=== PATIENT | female | born 1970 | race Caucasian/White ===

== ENCOUNTER → 2019-12-04 09:54 | Outpatient (BNVA) | payer OTHER, SELFPAY | PROVIDERS: Visit Provider Surgery | DX: Z76.89 Persons encountering health services in other specified circumstances (principal) ==

== ENCOUNTER → 2020-01-06 08:43 | Outpatient (BNVA) | payer OTHER, SELFPAY | PROVIDERS: PCP Internal Medicine; Visit Provider Surgery | DX: Z01.818 Encounter for other preprocedural examination (principal); E66.9 Obesity, unspecified; Z68.37 Body mass index [BMI] 37.0-37.9, adult; Z90.49 Acquired absence of other specified parts of digestive tract; Z88.0 Allergy status to penicillin; Z79.899 Other long term (current) drug therapy | CPT/HCPCS: 99212 ==

== ENCOUNTER 2020-07-21 | Outpatient (REF) | payer OTHER, SELFPAY ==
[2020-07-22 12:24] LABS: Glucose Urine UA NEG (NEG); Leukocyte Esterase Urine 1+ (NEG); Nitrite Urine NEG (NEG); PH 5.5 (5.0-8.0); Specific Gravity - Urine 1.025 (1.005-1.025); UACC Culture Trigger YES; Urine Blood NEG (NEG); Urine Ketones NEG (NEG); Urine Protein NEG (NEG-TRACE)
[2020-07-22 12:26] LABS: Appearance Urine HAZY; Color Urine YELLOW
[2020-07-22 12:37] LABS: Bacteria Urine 4+ /LPF; RBC Urine 0 /HPF (0); Squamous Epithelial Cell Urine 3+ /LPF
== END 2020-07-21 00:01 | disposition home or self-care (01) ==
LOC: HO.LNP
PROVIDERS: Visit Provider Nurse Practitioner Family
DX: R10.9 Unspecified abdominal pain (principal)
CPT/HCPCS: 81001; 81003; 87086; 87088; 87186

== ENCOUNTER → 2021-01-13 11:30 | Outpatient (BNVA) | payer OTHER, SELFPAY | PROVIDERS: PCP Internal Medicine; Referring Provider Internal Medicine; Visit Provider Physician Assistant Surgical ==

== ENCOUNTER → 2021-02-22 08:14 | Outpatient (BNVA) | payer OTHER, SELFPAY | PROVIDERS: PCP Internal Medicine; Visit Provider Surgery ==

== ENCOUNTER 2021-03-07 09:07 | Outpatient (REF) | payer OTHER, SELFPAY ==
--- NOTE | ~2021-03-07 | XR_ITS ---
EXAMINATION: XR CHEST CLINICAL INFORMATION: Obesity COMPARISON: None TECHNIQUE: 2 views of the chest were obtained. FINDINGS: No significant abnormality is noted involving the heart, lungs, mediastinum, bony thorax or soft tissues. XR/XR chest 2V IMPRESSION: Unremarkable examination.
[2021-03-07 09:37] LABS: MANUAL DIFF FLAG NO
--- NOTE | 2021-03-07 09:45 | ECG_ITS ---
Test Reason : OBESITY Blood Pressure : / mmHG Vent. Rate : 078 BPM Atrial Rate : 078 BPM P-R Int : 176 ms QRS Dur : 074 ms QT Int : 384 ms P-R-T Axes : 053 020 -03 degrees QTc Int : 437 ms Normal sinus rhythm Nonspecific T wave abnormality Abnormal ECG When compared with ECG of 17-NOV-2019 12:29, No significant change was found Referred By: Jaguar Ochoa Electronically Signed By:ROSHNI BARRIGA MD
[2021-03-07 10:03] LABS: Basophils Percent Auto 0.5 % (0-2); Eosinophils Absolute Auto 0.2 X10*3/uL (0.0-0.4); Eosinophils Percent Auto 2.2 % (0-4); Hematocrit 45.2 % (37.0-47.0); Hemoglobin 14.4 g/dl (12.0-16.0); Imm Gran Abs Auto 0.06 X10*3/uL (0.00-0.03); Imm Gran Pct Auto 0.8 % (0.0-0.4); Lymphocytes Absolute Auto 3.3 X10*3/uL (1.2-4.9); Lymphocytes Percent Auto 41.2 % (20-40); Mean Corpuscular HGB Conc 31.9 g/dl (31.0-35.0); Mean Corpuscular Hemoglobin 28.5 pg (27.0-33.0); Mean Corpuscular Volume 89.5 fL (80.0-98.0); Mean Platelet Volume 9.5 fL (9.4-12.3); Monocytes Absolute Auto 0.5 X10*3/uL (0.1-1.2); Monocytes Percent Auto 6.9 % (2-11); Neutrophils Absolute Auto 3.8 x10*3/uL (2.0-8.3); Neutrophils Percent Auto 48.4 % (45-73); Platelet Count 334 X10*3/uL (160-400); Red Blood Count 5.05 X10*6/uL (4.20-5.50); Red Cell Distribution Width 13.6 % (11.0-16.0); White Blood Count 7.9 X10*3/uL (4.8-10.8)
[2021-03-07 10:38] LABS: Estimated Average Glucose 111 mg/dL; Hemoglobin A1c % 5.5 %
[2021-03-07 10:42] LABS: Alanine Aminotransferase 19 U/L (0-31); Albumin Level 4.2 g/dL (3.5-5.0); Alkaline Phosphatase 80 U/L (39-117); Anion Gap 11 (12-20); Aspartate Amino Transferase 16 U/L (5-31); Bilirubin Total 0.4 mg/dL (0.0-1.0); Blood Urea Nitrogen 13 mg/dL (9-16); C Reactive Protein 0.46 mg/dL (< or = 0.50); Calcium 9.7 mg/dL (8.4-10.2); Carbon Dioxide 29 mmol/L (22-29); Chloride 110 mmol/L (96-108); Cholesterol 205 mg/dL; Estimated Glomerular Filt Rate > 60; Glucose Random 104 mg/dL (60-115); HDL Cholesterol 52 mg/dL; Iron 111 mcg/dL (30-160); LDL Cholesterol Calculated 135 mg/dl; Percent Iron Saturation 28 % (15-50); Potassium 4.8 mmol/L (3.3-5.1); Sodium 145 mmol/L (135-145); Total Iron Binding Capacity 392 mcg/dL (228-428); Total Protein 7.3 g/dL (6.5-8.0); Triglycerides 93 mg/dL; Unsaturated Iron Binding 281 ug/dL
[2021-03-07 11:04] LABS: Folate 11.4 ng/mL (> or = 4.0); Vitamin B12 325 pg/mL (200-900)
[2021-03-07 11:06] LABS: Ferritin 26 ng/mL (10-250); Insulin 18 uU/mL (2-29); TSH reflex Free T4 2.96 uIU/mL (0.32-4.0); Vitamin D 25-OH Total 17.3 ng/mL (>30)
[2021-03-08 11:53] LABS: H Pylori Breath Test Negative (Negative)
[2021-03-08 12:01] LABS: Calcium (PTHI) 9.7 mg/dL (8.6-10.2); PTHI 51 pg/mL (14-64)
[2021-03-10 06:27] LABS: Zinc 60 mcg/dL (60-130)
[2021-03-12 09:16] LABS: Vitamin B1 11 nmol/L (8-30)
[2021-03-12 23:36] LABS: Vitamin A 53 mcg/dL (38-98)
== END 2021-03-07 09:08 | disposition home or self-care (01) ==
LOC: HO.LAB 09:07
PROVIDERS: PCP Internal Medicine; Visit Provider Surgery
DX: E66.9 Obesity, unspecified (principal); Z68.39 Body mass index [BMI] 39.0-39.9, adult
CPT/HCPCS: 36415; 71046; 80053; 80061; 82306; 82607; 82728; 82746; 83013; 83036; 83525; 83540; 83970; 84425; 84443; 84590; 84630; 85025; 86140; 93005; 99211

== ENCOUNTER → 2021-03-25 08:01 | Outpatient (BNVA) | payer OTHER, SELFPAY | PROVIDERS: PCP Internal Medicine; Visit Provider Surgery ==

== ENCOUNTER → 2021-04-07 08:07 | Outpatient (REF) | payer OTHER, SELFPAY ==
--- NOTE | 2021-04-07 08:12 | CA_ITS ---
Acquisition Time: 2021-04-07 08:15:32 Total Exercise Time: 00:06:00 Test Indications: Abnormal ECG Medications: IRON NAPROXEN CYCLOBENZAPRINE Protocol: OLIVIA Max HR: 162 BPM 94% of Pred: 172 BPM Max BP: 158/078 mmHG Max Work Load: 7.0 METS Exercise stress test with exercise 6 min of Olivia protocol, without anginal symptoms, without arrythmia, with normotensive response to exercise, without EKG changes that meet criteria for ischemia however with nonspecific ST/ T wave abnormalities noted in recovery. Test reviewed with Dr Rainey. Message sent to Dr Bolanos with report and recommendation for stress echocardiogram for futher evaluation. Referred By: Jaguar Ochoa Overread By: IVONNE MCCOLLUM
== END ==
LOC: HO.CARD 08:07
PROVIDERS: PCP Internal Medicine; Visit Provider Surgery
DX: R94.31 Abnormal electrocardiogram [ECG] [EKG] (principal)
CPT/HCPCS: 93017

== ENCOUNTER → 2021-04-08 08:13 | Outpatient (BNVA) | payer OTHER, SELFPAY | PROVIDERS: PCP Internal Medicine; Visit Provider Dietitian, Registered | DX: E66.9 Obesity, unspecified (principal); Z71.3 Dietary counseling and surveillance | CPT/HCPCS: 97802 ==

== ENCOUNTER → 2021-04-18 08:15 | Outpatient (BNVA) | payer OTHER, SELFPAY | PROVIDERS: PCP Internal Medicine; Referring Provider Surgery; Visit Provider Dietitian, Registered | DX: E66.9 Obesity, unspecified (principal) | CPT/HCPCS: 97803 ==

== ENCOUNTER 2021-04-20 08:11 | Outpatient (REF) | payer OTHER, SELFPAY ==
--- NOTE | ~2021-04-20 | US_ITS ---
EXAMINATION: US COMPLETE ABDOMEN WITH LIVER ELASTOGRAPHY CLINICAL INFORMATION: Obesity. COMPARISON: None. TECHNIQUE: Real-time imaging of the abdominal viscera. Noninvasive ultrasound liver fibrosis assessment is performed using Iraj ElastPQ point quantification shear wave elastography (2D-SWE) with a C5-2 MHz transducer. Multiple elastography samples are obtained. FINDINGS: PANCREAS: Normal. The visualized pancreatic head and body are normal in appearance. The remainder of the pancreas is obscured from visualization by the overlying bowel gas. ABDOMINAL AORTA: The proximal, middle, and distal aortic segments are normal in caliber. INFERIOR VENA CAVA: Visualized portions are normal. LIVER: The liver demonstrates normal size, contour and echogenicity. There are multiple anechoic cysts with the largest cyst measuring 1.2 x 1.2 x 0.8 cm in the right hepatic lobe. There is an isoechoic mass with ill-defined margins measuring 4.0 x 3.6 x 4.6 cm with peripheral vascularity. It is not well visualized on the CT abdomen exam of 11/17/2019. Question atypical hemangioma, focal fatty deposition or adenoma. The right lobe measures 14.9 cm in length. The left lobe measures 11.6 cm in length. Portal flow is hepatopedal. Shear wave liver elastography median stiffness is 1.37 m/s (reference: normal median stiffness is 1.3 m/s or less). IQR/median stiffness to assess sampling precision is 0.11 (reference: good quality data set is IQR/median stiffness of 0.15 or less). GALLBLADDER: Normal. The gallbladder is physiologically distended without evidence of stones, sludge, polyps, wall thickening or pericholecystic fluid. COMMON BILE DUCT: Normal in caliber measuring 0.5 cm in diameter. RIGHT KIDNEY: Normal. No hydronephrosis. No renal calculi or focal parenchymal lesions. The kidney measures 10.8 cm in maximum dimension. LEFT KIDNEY: Normal. No hydronephrosis. No renal calculi or focal parenchymal lesions. The kidney measures 10.2 cm in maximum dimension. SPLEEN: Normal. The spleen measures 9.4 cm in maximum dimension. FREE FLUID: None. US/US abdomen comp w elastography IMPRESSION: 1. Hepatic steatosis with several liver cysts. These were seen on previous CT abdomen exam. There is an ill-defined isoechoic mass in segment 4A. Question hemangioma, adenoma or focal fatty liver deposition. Consider repeat CT of the liver with and without contrast. Rest of the abdominal ultrasound is unremarkable. 2. Liver elastography: Median liver stiffness 1.37 cm suggestive of CACLD (ruled out). REFERENCE: Society of Radiologists in Ultrasound Liver Stiffness Thresholds (2020): LIVER STIFFNESS THRESHOLDS: *Liver Stiffness equal or less than 1.3 m/s: High probability of being normal. *Liver Stiffness less than 1.7 m/s: In the absence of other known clinical signs, rules out compensated advanced chronic liver disease. *Liver Stiffness 1.7-2.1 m/s: Suggestive of compensated advanced chronic liver disease but need further test for confirmation. *Liver Stiffness over 2.1 m/s: Rules in compensated advanced chronic liver disease. *Liver Stiffness over 2.4 m/s: Suggestive of clinically significant portal hypertension. QUALITY OF DATA SET: *IQR/Median value equal or less than 0.15 implies a quality data set. *IQR/Median value over 0.15 implies a poor quality data set. SIGNIFICANT CHANGE FROM PRIOR EXAM: Significant change if liver stiffness measurement is 10% or greater from prior exam. OTHER CONSIDERATIONS: The stage of liver fibrosis may be overestimated in the setting of acute hepatitis, liver inflammation, elevated liver function tests, hepatic vascular congestion, obstructive cholestasis, non-fasting state, and infiltrative diseases such as amyloidosis and lymphoma. In some patients with NAFLD, the liver stiffness thresholds for compensated advanced chronic liver disease may be lower. In causes other than viral hepatitis and NAFLD, liver stiffness thresholds are not well established.
--- NOTE | ~2021-04-20 | FL_ITS ---
EXAMINATION: XR FLUOROSCOPY UPPER GI WITH AIR CLINICAL INFORMATION: Obesity. COMPARISON: None. TECHNIQUE: Routine upper GI air-contrast study was performed in upright and lying position. FINDINGS: Following oral administration of thick barium and effervescent granules, there is normal propagation of bolus from the oral cavity through the pharynx and esophagus and into the stomach without any evidence of obstruction, narrowing or stricture On placing patient supine and prone lying, there is a small hiatal hernia noted. No reflux seen. The course, caliber and peristalsis of the stomach and the duodenum are normal. The mucosal pattern of the stomach and the duodenum is normal. There is evidence of previous cholecystectomy. FLUOROSCOPY TIME: 1.5 minutes DOSE AREA PRODUCT: 29.136 Gy-m2 (microgray-meter squared) FL/FL upper GI w air IMPRESSION: Small hiatal hernia. No gastroesophageal reflux. The rest of the upper GI exam is unremarkable.
== END 2021-04-20 08:12 | disposition home or self-care (01) ==
LOC: HO.US 08:11
PROVIDERS: PCP Internal Medicine; Visit Provider Surgery
DX: E66.9 Obesity, unspecified (principal); Z68.39 Body mass index [BMI] 39.0-39.9, adult
CPT/HCPCS: 74246; 76705; 76981

== ENCOUNTER → 2021-04-22 08:43 | Outpatient (BNVA) | payer OTHER, SELFPAY | PROVIDERS: PCP Internal Medicine; Visit Provider Surgery ==

== ENCOUNTER → 2021-04-27 10:59 | Outpatient (REF) | payer OTHER, SELFPAY ==
--- NOTE | 2021-04-27 11:06 | CA_ITS ---
Acquisition Time: 2021-04-27 11:09:51 Total Exercise Time: 00:06:41 Test Indications: ABN EKG, ABN ETT Medications: SEE CHART Protocol: OLIVIA Max HR: 164 BPM 95% of Pred: 172 BPM Max BP: 158/088 mmHG Max Work Load: 8.1 METS Exercise stress test with exercise 6 min 41 sec of Olivia protocol, without anginal symptoms, without arrythmia, with normotensive response to exercise, with baseline EKG showing T wave inversion leads III, aVF, V3, without EKG changes meeting criteria for ischemia at peak, with same T wave inversions seen throughout test and including mild T wave inversion V4-V6 in recovery. Echo images obtained by tech at rest and immediately post peak exercise. Definity contast used. Test reviewed with Dr Rainey Referred By: Jaguar Ochoa Overread By: IVONNE MCCOLLUM
== END ==
LOC: HO.CARD 10:59
PROVIDERS: PCP Internal Medicine; Visit Provider Surgery
DX: R94.39 Abnormal result of other cardiovascular function study (principal)
CPT/HCPCS: 93350; Q9957

== ENCOUNTER 2021-05-23 16:11 | Emergency (ER) | payer OTHER, SELFPAY ==
--- NOTE | 2021-05-23 | ECG_ITS ---
Test Reason : CHEST PAIN Blood Pressure : / mmHG Vent. Rate : 078 BPM Atrial Rate : 078 BPM P-R Int : 174 ms QRS Dur : 076 ms QT Int : 392 ms P-R-T Axes : 050 023 019 degrees QTc Int : 446 ms Normal sinus rhythm Nonspecific T wave abnormality Abnormal ECG When compared with ECG of 07-MAR-2021 09:48, No significant change was found Referred By: Generic ED Physician Electronically Signed By:Oswaldo Argueta
--- NOTE | ~2021-05-23 | XR_ITS ---
EXAMINATION: XR CHEST CLINICAL INFORMATION: Chest pain COMPARISON: None TECHNIQUE: Frontal view of the chest was obtained. FINDINGS: No significant abnormality is noted involving the heart, lungs, mediastinum, bony thorax or soft tissues. XR/XR chest 1V IMPRESSION: Unremarkable chest examination.
[2021-05-23 18:34] VITALS: BP 122/78; PULSE 73; RESP 16; TEMP 36.8; O2SAT 99; BMI 34.4
[2021-05-23 21:22] LABS: MANUAL DIFF FLAG NO
[2021-05-23 21:42] LABS: Anion Gap 15 (12-20); Basophils Percent Auto 0.2 % (0-2); Blood Urea Nitrogen 14 mg/dL (9-16); Calcium 9.5 mg/dL (8.4-10.2); Carbon Dioxide 25 mmol/L (22-29); Chloride 106 mmol/L (96-108); Creatinine Clr Calc Pharmacy 87.8; Eosinophils Absolute Auto 0.2 X10*3/uL (0.0-0.4); Eosinophils Percent Auto 2.4 % (0-4); Estimated Glomerular Filt Rate > 60; Glucose Random 94 mg/dL (60-115); Hemoglobin 14.2 g/dl (12.0-16.0); Imm Gran Abs Auto 0.05 X10*3/uL (0.00-0.03); Imm Gran Pct Auto 0.6 % (0.0-0.4); Lymphocytes Absolute Auto 3.9 X10*3/uL (1.2-4.9); Lymphocytes Percent Auto 43.2 % (20-40); Mean Corpuscular HGB Conc 32.3 g/dl (31.0-35.0); Mean Corpuscular Hemoglobin 28.8 pg (27.0-33.0); Mean Corpuscular Volume 89.2 fL (80.0-98.0); Mean Platelet Volume 9.7 fL (9.4-12.3); Monocytes Absolute Auto 0.6 X10*3/uL (0.1-1.2); Monocytes Percent Auto 6.2 % (2-11); Neutrophils Absolute Auto 4.2 x10*3/uL (2.0-8.3); Neutrophils Percent Auto 47.4 % (45-73); Platelet Count 362 X10*3/uL (160-400); Potassium 4.5 mmol/L (3.3-5.1); Red Blood Count 4.93 X10*6/uL (4.20-5.50); Red Cell Distribution Width 13.8 % (11.0-16.0); Sodium 141 mmol/L (135-145); White Blood Count 8.9 X10*3/uL (4.8-10.8)
[2021-05-23 21:47] LABS: Troponin-I High Sensitivity 5.6 ng/L (<3.5-17.0)
== END 2021-05-23 23:26 | disposition left against medical advice (07) ==
PROVIDERS: Emergency Provider Emergency Medicine; PCP Internal Medicine
DX: R07.9 Chest pain, unspecified (principal); R20.0 Anesthesia of skin
CPT/HCPCS: 36415; 71045; 80048; 84484; 85025; 93005; 99283

== ENCOUNTER → 2021-05-27 11:06 | Outpatient (BNVA) | payer OTHER, SELFPAY | PROVIDERS: PCP Internal Medicine; Visit Provider Surgery | DX: Z13.89 Encounter for screening for other disorder (principal) ==

== ENCOUNTER → 2021-06-01 09:11 | Outpatient (BNVA) | payer OTHER, SELFPAY | PROVIDERS: PCP Internal Medicine; Visit Provider Physician Assistant | DX: Z13.89 Encounter for screening for other disorder (principal) ==

== ENCOUNTER → 2021-06-08 08:42 | Outpatient (BNVA) | payer OTHER, SELFPAY | PROVIDERS: PCP Internal Medicine; Referring Provider Internal Medicine; Visit Provider Physician Assistant | DX: Z13.89 Encounter for screening for other disorder (principal) ==

== ENCOUNTER → 2021-06-15 08:58 | Outpatient (BNVA) | payer OTHER, SELFPAY | PROVIDERS: PCP Internal Medicine; Referring Provider Internal Medicine; Visit Provider Physician Assistant Surgical | DX: Z13.89 Encounter for screening for other disorder (principal) ==

== ENCOUNTER → 2021-06-22 09:08 | Outpatient (BNVA) | payer OTHER, SELFPAY | PROVIDERS: PCP Internal Medicine; Visit Provider Physician Assistant | DX: Z13.89 Encounter for screening for other disorder (principal) ==

== ENCOUNTER → 2021-06-27 08:15 | Outpatient (BNVA) | payer OTHER, SELFPAY | PROVIDERS: PCP Internal Medicine; Visit Provider Surgery | DX: Z13.89 Encounter for screening for other disorder (principal) ==

== ENCOUNTER → 2021-07-08 09:01 | Outpatient (BNVA) | payer OTHER, SELFPAY | PROVIDERS: PCP Internal Medicine; Referring Provider Internal Medicine; Visit Provider Surgery | DX: Z13.89 Encounter for screening for other disorder (principal) ==

== ENCOUNTER → 2021-07-11 08:10 | Outpatient (BNVA) | payer OTHER, SELFPAY | PROVIDERS: PCP Internal Medicine; Visit Provider Surgery | DX: E66.9 Obesity, unspecified (principal); Z68.36 Body mass index [BMI] 36.0-36.9, adult; K21.9 Gastro-esophageal reflux disease without esophagitis; R11.0 Nausea; Z01.818 Encounter for other preprocedural examination ==

== ENCOUNTER 2021-08-30 08:46 | Outpatient (REF) | payer OTHER, SELFPAY ==
[2021-08-30 09:26] LABS: MANUAL DIFF FLAG NO
[2021-08-30 10:02] LABS: Basophils Percent Auto 0.3 % (0-2); Eosinophils Absolute Auto 0.1 X10*3/uL (0.0-0.4); Eosinophils Percent Auto 1.6 % (0-4); Hematocrit 43.4 % (37.0-47.0); Hemoglobin 14.3 g/dl (12.0-16.0); Imm Gran Abs Auto 0.02 X10*3/uL (0.00-0.03); Imm Gran Pct Auto 0.3 % (0.0-0.4); Lymphocytes Absolute Auto 3.1 X10*3/uL (1.2-4.9); Mean Corpuscular HGB Conc 32.9 g/dl (31.0-35.0); Mean Corpuscular Hemoglobin 28.5 pg (27.0-33.0); Mean Corpuscular Volume 86.5 fL (80.0-98.0); Mean Platelet Volume 9.3 fL (9.4-12.3); Monocytes Absolute Auto 0.5 X10*3/uL (0.1-1.2); Monocytes Percent Auto 7.8 % (2-11); Neutrophils Absolute Auto 3.1 x10*3/uL (2.0-8.3); Platelet Count 319 X10*3/uL (160-400); Red Blood Count 5.02 X10*6/uL (4.20-5.50); Red Cell Distribution Width 13.2 % (11.0-16.0); White Blood Count 6.8 X10*3/uL (4.8-10.8)
[2021-08-30 10:25] LABS: Estimated Average Glucose 105 mg/dL; Hemoglobin A1c % 5.3 %
[2021-08-30 10:35] LABS: Alanine Aminotransferase 19 U/L (0-31); Albumin Level 4.1 g/dL (3.5-5.0); Alkaline Phosphatase 77 U/L (39-117); Anion Gap 14 (12-20); Aspartate Amino Transferase 24 U/L (5-31); Bilirubin Total 0.6 mg/dL (0.0-1.0); Blood Urea Nitrogen 12 mg/dL (9-16); C Reactive Protein 0.54 mg/dL (< or = 0.50); Calcium 9.3 mg/dL (8.4-10.2); Carbon Dioxide 26 mmol/L (22-29); Chloride 108 mmol/L (96-108); Cholesterol 174 mg/dL; Estimated Glomerular Filt Rate > 60; Glucose Random 105 mg/dL (60-115); HDL Cholesterol 41 mg/dL; LDL Cholesterol Calculated 116 mg/dl; Potassium 4.4 mmol/L (3.3-5.1); Sodium 144 mmol/L (135-145); Total Protein 6.9 g/dL (6.5-8.0); Triglycerides 87 mg/dL
[2021-08-30 10:54] LABS: Prothrombin Time 11.2 SEC (9.9-13.0)
[2021-08-30 10:55] LABS: Partial Thromboplastin Time 35.9 SEC (24.1-38.0)
[2021-08-30 11:04] LABS: Insulin 10 uU/mL (2-29); TSH reflex Free T4 2.01 uIU/mL (0.32-4.0)
== END 2021-08-30 08:47 | disposition home or self-care (01) ==
LOC: HO.LAB 08:46
PROVIDERS: PCP Internal Medicine; Visit Provider Surgery
DX: E66.9 Obesity, unspecified (principal); Z68.36 Body mass index [BMI] 36.0-36.9, adult
CPT/HCPCS: 36415; 80053; 80061; 83036; 83525; 84443; 85025; 85610; 85730; 86140

== ENCOUNTER 2021-09-06 11:01 | Inpatient (IN) | payer OTHER, SELFPAY ==
[2021-08-31 10:23] VITALS: BMI 37.8
--- NOTE | 2021-09-02 08:35 | P.CONAN_ITS ---
Documented by User: Sherley Reis NP 09/02/21 08:39 HPI - Anesthesia Eval Consult details Narrative: 51yo F for Gastrectomy Sleeve,EGD,Possible diaphragmatic hernia,Possible ventral hernia,Possible open PMFSH Active Problems Active Problems: All Active Problems (Updated 08/19/21 @ 11:54 by Jonathon Yao MD) Grieving (Acute) Encounter for routine gynecological examination (Acute) Status post laparoscopic cholecystectomy (Acute) Anemia (Acute) Preoperative examination (Acute) BMI 37.0-37.9, adult (Acute) Daytime somnolence (Acute) Physical exam, annual (Acute) Encounter for general adult medical examination with abnormal findings (Acute) Abnormal CBC (Acute) Breast screening (Acute) Screening-pulmonary TB (Acute) Flank pain (Acute) Foul smelling urine (Acute) BMI 39.0-39.9,adult (Acute) Abnormal EKG (Acute) Vitamin D deficiency (Acute) Vitamin B12 deficiency (Acute) BMI 38.0-38.9,adult (Acute) Abnormal stress test (Acute) Chest pain (Acute) Back pain (Acute) Obesity (Acute) Past Medical History Medical History Anemia Back pain Chronic constipation Eczema History of COVID-19 Obesity Family History Family History Father Heart disease Mother No problems noted. Brother DM (diabetes mellitus) Brother No problems noted. Brother No problems noted. Sister No problems noted. Sister No problems noted. Sister No problems noted. Son No problems noted. Son No problems noted. Daughter No problems noted. Daughter No problems noted. Surgical History Surgical History (Updated 09/06/21 @ 11:32 by Katie Gagnon RN) Hx of abdominoplasty Hx of bilateral breast reduction surgery Status post cholecystectomy Tubal ligation status Social History Social History Housing: House Are you a primary youth care professional to a significant other at home: No Do you presently have visiting nurse or other home services: No Alcohol intake: current Alcohol intake frequency: does not drink Patient Tobacco Use Status: Never used Tobacco e-Cigarette/Vaping Use: Never Used Second Hand Smoke Exposure: No Use of substances other than those prescribed or required for medical reasons: No Have you been hit, kicked, punched, or otherwise hurt by someone within the past year? 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 [employer] Current occupational exposures/hazards: No Cognitive needs: No Hearing needs: No Vision needs: No Meds Allergies Allergy/AdvReac Type Severity Reaction Status Date / Time penicillin G Allergy Unknown Hives Verified 08/26/21 10:38 Home Medications Medication Instructions Recorded Confirmed Last Taken Type vitamin B complex (B 1 tab PO DAILY 01/06/20 08/31/21 Unknown History Complex-Vitamin B12) hydrocortisone 2.5 % topical cream 1 appl topical QAM PRN Rash 07/14/21 08/31/21 Unknown History hydroquinone 4 % topical cream 1 appl topical DAILY PRN Rash 07/14/21 08/31/21 Unknown History ketoconazole 2 % topical cream 1 appl topical BID PRN Rash 07/14/21 08/31/21 Unknown History Exam Exam Date and Time: September 02, 2021 0835 Height,Weight and Vital Signs: Height 5 ft 6 in Weight 106.141 kg Pertinent Lab Results Pertinent Lab Results: Laboratory Tests 08/30/21 09:20 Blood Type A Positive Antibody Screen NEGATIVE Laboratory Tests 08/30/21 08/30/21 09:24 09:24 WBC 6.8 Hgb 14.3 Hct 43.4 Plt Count 319 Sodium 144 Potassium 4.4 Chloride 108 Carbon Dioxide 26 BUN 12 Creatinine 0.90 Narrative Narrative: EKG 05/2021 Vent. Rate : 078 BPM ? ? Atrial Rate : 078 BPM ?? P-R Int : 174 ms? QRS Dur : 076 ms ? ? QT Int : 392 ms ? ? ? P-R-T Axes : 050 023 019 degrees ?? QTc Int : 446 ms ? Normal sinus rhythm Nonspecific T wave abnormality Abnormal ECG When compared with ECG of 07-MAR-2021 09:48, No significant change was found Stress ECHO 04/2021 Exercise stress echocardiogram was reviewed. At rest, there is normal LVEF and wall motion. With peak exercise, there is? appropriate augmentation of wall thickening and contractility. There is normal decrease in end-systolic volumes. Overall,? normal study.? Assessment and Plan Assessment Anesthesia Assessment: Chart Reviewed Documented by User: Ximena Victoria MD 09/06/21 13:34 [facility] Active Problems Active Problems: All Active Problems (Updated 08/19/21 @ 11:54 by Jonathon Yao MD) Grieving (Acute) Encounter for routine gynecological examination (Acute) Status post laparoscopic cholecystectomy (Acute) Anemia (Acute) Preoperative examination (Acute) BMI 37.0-37.9, adult (Acute) Daytime somnolence (Acute) Physical exam, annual (Acute) Encounter for general adult medical examination with abnormal findings (Acute) Abnormal CBC (Acute) Breast screening (Acute) Screening-pulmonary TB (Acute) Flank pain (Acute) Foul smelling urine (Acute) BMI 39.0-39.9,adult (Acute) Abnormal EKG (Acute) Vitamin D deficiency (Acute) Vitamin B12 deficiency (Acute) BMI 38.0-38.9,adult (Acute) Abnormal stress test (Acute) Chest pain (Acute) Back pain (Acute) Obesity (Acute) Denies RYAN Past Medical History Medical History Anemia Back pain Chronic constipation Eczema History of COVID-19 Obesity Family History Family History Father Heart disease Mother No problems noted. Brother DM (diabetes mellitus) Brother No problems noted. Brother No problems noted. Sister No problems noted. Sister No problems noted. Sister No problems noted. Son No problems noted. Son No problems noted. Daughter No problems noted. Daughter No problems noted. Family history of problems with anesthesia: No Surgical History Surgical History (Updated 09/06/21 @ 11:32 by Katie Gagnon RN) Hx of abdominoplasty Hx of bilateral breast reduction surgery Status post cholecystectomy Tubal ligation status History of Problems with Anesthesia: No Social History Social History Housing: House Are you a primary youth care professional to a significant other at home: No Do you presently have visiting nurse or other home services: No Alcohol intake: current Alcohol intake frequency: does not drink Patient Tobacco Use Status: Never used Tobacco e-Cigarette/Vaping Use: Never Used Second Hand Smoke Exposure: No Use of substances other than those prescribed or required for medical reasons: No Have you been hit, kicked, punched, or otherwise hurt by someone within the past year? 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 [employer] Current occupational exposures/hazards: No Cognitive needs: No Hearing needs: No Vision needs: No Meds Allergies Allergy/AdvReac Type Severity Reaction Status Date / Time penicillin G Allergy Unknown Hives Verified 08/26/21 10:38 Home Medications Medication Instructions Recorded Confirmed Last Taken Type vitamin B complex (B 1 tab PO DAILY 01/06/20 08/31/21 Unknown History Complex-Vitamin B12) hydrocortisone 2.5 % topical cream 1 appl topical QAM PRN Rash 07/14/21 08/31/21 Unknown History hydroquinone 4 % topical cream 1 appl topical DAILY PRN Rash 07/14/21 08/31/21 Unknown History ketoconazole 2 % topical cream 1 appl topical BID PRN Rash 07/14/21 08/31/21 Unknown History Exam Height,Weight and Vital Signs: Height 5 ft 6 in Weight 106.141 kg Vital Signs Temp Pulse Resp BP Pulse Ox O2 Del Method 09/06/21 11:17 98.6 F 71 17 108/70 96 Room Air Pertinent Lab Results Pertinent Lab Results: Laboratory Tests 08/30/21 09:20 Blood Type A Positive Antibody Screen NEGATIVE Laboratory Tests 08/30/21 08/30/21 09:24 09:24 WBC 6.8 Hgb 14.3 Hct 43.4 Plt Count 319 Sodium 144 Potassium 4.4 Chloride 108 Carbon Dioxide 26 BUN 12 Creatinine 0.90 Lab Results 08/30/21 09/06/21 Range/Units 09:20 11:02 COVID-19 (MADY) Negative (Negative) COVID-19 Clin Com See Note Blood Type A Positive Antibody Screen NEGATIVE Airway Mallampati Class: III TM Dist: >3cm Neck ROM: Full Loose/Missing/Broken Teeth: No (Patient denies) Heart: RRR Lungs: CTAB Assessment and Plan Final Anesthetic Review Family History of Problems with Anesthesia: No History of Problems with Anesthesia: No NPO: Yes ASA Class: III Final Preanesthetic Review: No Changes in Pt Med Stat, Meds/Allgs Chart Reviewed, Consent Obtained/Reviewed and Anes Risks/Benef Reviewed Patient Risk: Intermediate Procedure Risk: Intermediate Assessment/Block/Sedation in SS: Assess/Block/Sedation-SS Anesthetic Plan Anesthetic Plan: GA Disposition: Standard PACU and Inp. Admit - Standard Bed
--- NOTE | 2021-09-03 22:59 | MHC.SHP ---
Pre-Procedural Eval Section A Date of Service: 09/03/21 The patient is an INPATIENT: Yes The History & Physical has been completed within 30 days and I have reviewed it.: Yes Section B Chief Complaint: Obesity Relevant Family History (Specify if Yes): No Relevant Social History: None Present Medications: None Medical History: No relevant PMH History of Previous Operations: No relevant previous surgery Allergies: Allergies Allergy/AdvReac Type Severity Reaction Status Date / Time penicillin G Allergy Unknown Hives Verified 08/26/21 10:38 Review of Systems Sugical H&P ROS: Negative: Constitution, Cardiovascular, Respiratory, Neurological, Psychiatric, Hem-Onc, Allergic/Immunologic, Gastrointestinal, Genitourinary, Musculoskeletal, Integumentary, Endocrine and Eyes/Ears/Nose/Throat Exam Surgical H&P Exam: Normal: HEENT, Normal: Heart, Normal: Lungs, Normal: Extremities, Normal: Abdomen, Normal: Skin and Normal: Neurological Plan Diagnosis/Plan: Unchanged I have reviewed the history and physical and performed a pertinent physical examination on my patient. No changes have occurred unless specified.
[2021-09-06] VITALS (14 sets, daily range): BP systolic 108–147; BP diastolic 70–94; PULSE 64–73; RESP 16–22; TEMP 36.4–37; O2SAT 96–100; BMI 35.6
--- NOTE | 2021-09-06 11:15 | PHA.MEDREC ---
Pharmacy Consult ? Medication Reconciliation Pharmacy has reviewed the medication reconciliation completed by nursing.
[2021-09-06 11:47] LABS: COVID-19 Test Negative (Negative)
[2021-09-06] MEDS: Lactated Ringers 1,000 ML 999 ML IV (12:00)
[2021-09-06] MEDS: Lactated Ringers 1,000 ML 100 ML IVCONT ×2 (12:01→19:18)
--- NOTE | 2021-09-06 14:35 | P.BOP_ITS ---
Brief Operative Note Date of Service: 09/06/21 Pre-op diagnosis: Severe obesity with comorbidities (see below) Post-op diagnosis: same Procedure: INITIAL PATIENT BMI ON PRESENTATION AT OUR OFFICE: 39.7 kg/m2 LAST BMI BEFORE SURGERY: 35.6 kg/m2 COMORBIDITIES: back pain ?The patient presented to the Weight Management Program with significant obesity that was negatively impacting the patient's comorbidities as listed above.? The program is a phased program with a special focus on preoperative medical weight management to promote substantial weight loss and prepare the patients for the second phase of the program: bariatric surgery. The patient participated in an intensive weekly lifestyle ?intervention and exercise program during which the patient ?has lost between the initial office visit and the last preoperative visit 19.2 lbs, or 7.81% of initial actual body weight. It was deemed appropriate for the patient to now have bariatric surgery. In light of the current Covid-19 pandemic and the well documented strong association of obesity and increased risk of worse outcomes if infected with Covid-19 (REFERENCES: https://pubmed.ncbi.nlm.nih.gov/87417595/ ,? https://pubmed.ncbi.nlm.nih.gov/98307698/ ), any delay in undergoing bariatric surgery may lead to the patient's worsening health condition and increased?risk of more severe Covid-19 disease if infected. In addition a recent?study from [facility] published in [facility] on 02/28/2021 ([email or web address]) found that, among patients with obesity, substantial weight loss achieved with surgery was associated with improved outcomes of COVID-19 infection. The findings suggest that obesity can be a modifiable risk factor for the severity of COVID-19 infection. In addition, the patient met the BMI-criteria for bariatric surgery based on the BMI on initial presentation. The patient should not be penalized for achieving such weight loss because ?it is not sustainable long-term without surgical intervention and it was achieved in preparation for bariatric surgery ?under my direction and based on my published research ([email or web address]:/[email or web address] [email or web address]).pdf and? https://www.soard.org/article/[email or web address](04)49607-X/pdf ) ?that a 10% preoperative weight loss improves long-term weight loss after surgery and reduces perioperative complications.? Insurance carriers such as [facility] have endorsed my recommendations ?and have included in their policies criteria to include a 10% preoperative weight loss requirement. PROCEDURE: Esophago-gastroscopy, laparoscopic sleeve gastrectomy and laparoscopic gastropexy INDICATIONS: This is a 51 year-old female who was electively scheduled for laparoscopic, possibly open sleeve gastrectomy. The risks and complications of the procedure were discussed with the patient in advance, particularly the possibility of ; pulmonary embolism; staple line leak; bleeding; GERD; cardiac, pulmonary, or renal complications; as well as long-term problems such as insufficient weight loss, vitamin deficiency, strictures, or ulcers. The patient understood all the risks, and was in agreement to proceed with surgery. DESCRIPTION OF PROCEDURE: After informed consent was obtained from the patient, the patient was given preoperative antibiotics, and was transferred to the operating room. After successful induction of general anesthesia, pneumatic compression devices were placed on both lower extremities. An upper endoscopy was performed next. The oropharynx and esophagus appeared to be within normal limits. There was n diaphragmatic hernia present consistent with the findings of the preoperative upper GI. The stomach was entered. Then after all fluid and air were suctioned and the stomach was fully decompressed, the scope was withdrawn and secured in the mid esophagus. The patient was then prepped and draped in the usual sterile manner, and abdominal access was established at the right upper quadrant with the Mahad technique. A 12 mm blunt port was inserted, and the abdomen was insufflated with CO2 to a pressure of 15 mmHg. Under direct visualization, additional ports were placed, specifically two 5 mm Versi-step ports to the left upper quadrant, and a 5 mm Versi-Step port to the right upper quadrant. 1% lidocaine plain was used to infiltrate all port sites as well as all fascia defects. Using the EndoClose suture passer device, I placed a #1 Polysorb tie across the falciform ligament in order to retract it up against the abdominal wall and pr event injury of the ligament with our instruments during the procedure. Following that, the patient was placed in a steep reverse Trendelenburg position. An additional 5 mm port was placed to the right flank for the Mediflex retractor that was used to retract the left lobe of the liver. The gastro-esophageal fat pad was opened with the ultrasonic device (Thunderbeat, Olympus) and the anterior esophagus and hiatus were exposed. The angle of His was opened with the ultrasonic device the fundus of the stomach from any diaphragmatic and splenic attachments. I then opened the gastrocolic ligament between the transverse colon and the greater curvature of the stomach with the ultrasonic device to enter the lesser sac and facilitate the ligation of the short gastric vessels. I started at a mid-point along the greater curvature and using the Thunderbeat, all short gastric vessels were divided all the way to the angle of His until the left eric was completely dissected at its entirety. I then divided the gastro-colic ligament distally to a distance of about 3-4 cm proximal to the pylorus. The stomach was then divided transversely with one Endo AGATHA-45 purple, one AGATHA- 45 orange load and four AGATHA-60 articulating orange loads using the AEON stapler and loads. Every effort was made that the gastric sleeve had a tubular shape and an even caliber throughout. Once the sleeve resection was completed, the staple line of the gastric sleeve was reinforced with Hemoclips. The resected stomach was retrieved without difficulty from the Mahad port. A gastropexy was then performed in order to prevent postoperative GERD and partial gastric volvulus. Several interrupted 2.0 Surgidac sutures were placed between the sleeve's staple line and the previously divided greater omentum and gastro-colic ligament using the Endo-Stitch device. ?An upper endoscopy was performed. There was no narrowing at the GE junction. The scope was easily advanced all the way to the pylorus which was clearly visualized. There was no narrowing anywhere and the sleeve's caliber was even throughout. The sleeve's staple line was inspected and there was no evidence of ischemia, bleeding or dehiscence. At that point the gastroscope was withdrawn from the patient?s mouth while we were decompressing the bowel and the stomach from any remaining air. I looked into the lesser sac to see how the sleeve was situating and it was situating well. There was no bleeding from the staple line, spleen, or short gastric vessels. The Mediflex retractor was removed, and the undersurface of the liver was inspected and there was no bleeding. The patient was placed in supine position. I closed the fascial defect of the 12 mm port site with a figure of eight #1 Polysorb suture. Then 40ml of Rupivacaine plain with 10 mg of Dexamethasone were used to infiltrate the fascial closure as well as all skin incisions. A total of 7ml of Zynrelef was applied in the Mahad wound. At this point, the abdomen was deflated, all ports were removed under direct vision, and no bleeding was noted from any of the port sites. The skin incisions were irrigated with saline and were closed with 4-0 absorbable monofilament sutures. Steri-Strips and OpSites were used to cover all incisions. The patient was extubated and was transferred in stable condition to the recovery room for further care. I was present and performed all driver parts of the procedure. Anibal was the assistant maintenance manager. There were no residents to assist with this case. Dalton Ochoa MD, PhD, FACS Surgeon: Jaguar Ochoa MD Anesthesia: GETA, local and other (TAP block & 7ml of Zynrelef) Was an Screen Printing Inspector used for this Procedure?: Yes Screen Printing Inspector: Ana Rosa Barnett Estimated blood loss (mL): 10 IV fluids (mL): 3,000 Urine output (mL): 0 (No Kapoor to record) Pathology: other (Stomach) Condition: stable Disposition: PACU
--- NOTE | 2021-09-06 14:37 | PM.PNGS ---
Subjective Subjective Date of Service: 09/07/21 Interval history: Feels well. Mild incisional pain. She is tolerating phase 1 bariatric diet Physical Exam Vital Signs: Vital Signs: Last Vital Signs Temp 98.6 F 09/06/21 11:17 Pulse 71 09/06/21 11:17 Resp 17 09/06/21 11:17 BP 108/70 09/06/21 11:17 Pulse Ox 96 09/06/21 11:17 O2 Del Method 09/06/21 11:17 BMI result Body Mass Index 35.6 GI: Inspection: Yes normal to inspection, Yes incision (clean, dry and intact) and Yes obesity Extrem: Right lower extremity: normal to inspection (no calf tenderness) Left lower extremity: normal to inspection (no calf tenderness) Objective Data Active Medications Fentanyl (Fentanyl Citrate/Pf 100 Mcg/2 Ml Vial) 25 mcg IVPUSH Q5M PRN; Protocol PRN Reason: Pain, Moderate (Pain Scale 4-6 Hydromorphone HCl (Hydromorphone Hcl 0.5 Mg/0.5 Ml Syringe) 0.25 mg IVPUSH Q5M PRN; Protocol PRN Reason: Pain, Severe (Pain Scale 7-10) Lactated Ringer's (Lr) 1,000 mls @ 100 mls/hr IVCONT .Q10H KATELIN Last Admin: 09/06/21 12:01 Dose: 100 mls/hr Documented By: RUBINA Promethazine HCl 6.25 mg/ (Sodium Chloride) 50.25 mls @ 201 mls/hr IV ONCE PRN PRN Reason: Nausea and Vomiting Ondansetron HCl (Ondansetron Hcl 4 Mg/2 Ml Vial) 4 mg IVPUSH ONCE PRN PRN Reason: Nausea and Vomiting Labs CBC & Chem 7: 09/07/21 06:05 09/07/21 06:05 Labs: Laboratory Results - last 24 hr 09/06/21 11:02 COVID-19 ([facility]) Negative COVID-19 Clin Com See Note Procedures Date of Service Date of Service: 09/07/21 Progress Note: A&P Assessment and plan (1) Obesity: Status: Acute Assessment and Plan: s/p laparoscopic sleeve gastrectomy and gastropexy Doing well Will check am labs and if OK the patient will be discharged home (2) BMI 35.0-35.9,adult: (3) Back pain: (4) S/P laparoscopic sleeve gastrectomy: Status: Acute Time Spent With Patient Time: Total time spent is greater than 50% in coordination of care (as documented) at patient's floor/unit and/or counseling patient: Quality Stroke Does the patient have a stroke diagnosis?: No VTE Prior VTE?: No VTE Risk Level:: Surgical - moderate VTE Device Contraindication: N/A - Device Ordered VTE Drug Contraindication: Treatment Not Indicated
[2021-09-06] MEDS: Famotidine/PF 20 MG/2 ML VIAL IVPUSH ×2 (17:02→21:07)
--- NOTE | 2021-09-06 17:03 | P.DS_ITS ---
DS: Providers Provider Date of Service: 09/07/21 Date of admission: 09/06/21 11:01 Primary care physician: Jonathon Yao MD DS: Diagnosis Discharge Diagnosis (1) Obesity: Status: Acute (2) BMI 35.0-35.9,adult: (3) Back pain: DS: Summary Hospital Course Hospital Course: ADMITTING DIAGNOSIS: morbid obesity DISCHARGE DIAGNOSIS: same, s/p laparoscopic sleeve gastrectomy PAST SURGICAL HISTORY: abdominoplasty , breast reduction PROCEDURE: upper endoscopy, laparoscopic sleeve gastrectomy DISCHARGE SUMMARY: History of Present Illness: The patient is a 51 year-old woman with a BMI of 39.6kg/m2 and associated co- morbidities as described above. The patient had extensive work-up, and was electively scheduled for laparoscopic, possible open sleeve gastrectomy and gastropexy. Risks and complications of the surgery were discussed with the patient in advance, particularly the possibility of , pulmonary embolism, anastomotic leak, bleeding, bowel injury, GERD, cardiac, renal or pulmonary complications. The patient understood all the risks and was in agreement with the surgical plan. Hospital Course: The patient underwent an uneventful laparoscopic sleeve gastrectomy with gastropexy on the day of admission. Postoperatively, the patient was transferred to the surgical floor. The patient received IV Acetaminophen and IV dilaudid for pain control. Patient was started on bariatric phase 1 diet POD #0. On postoperative day one, the patient was feeling well without nausea, vomiting, fevers, or tachycardia. The patient had some mild incisional pain and the abdomen was soft. On the morning of postoperative day one, the patient was continued on 1 ounce of water or ice every half hour. During the day, the patient did fairly well, having some incisional pain, but able to ambulate adequately and to tolerate liquids well. Since the patient is doing well, we decided that the patient was ready to be discharged. The patient was given instructions to follow-up with me next week and to call my office for any fever over 101, persistent abdominal pain, nausea, vomiting, GERD, symptoms of DVT such as calf tenderness, or leg swelling, or pulmonary embolism such as chest pain or shortness of breath. The patient was also instructed to drink 40-60 ounces of liquids per day using the 1-ounce cups. The patient had been given prescriptions for Tylenol for pain, Zofran prn for nausea, and pantoprazole and carafate previously. The patient was encouraged to ambulate and use the incentive spirometer. The patient was allowed to shower, but no baths, and encouraged to stay active at home. All of these instructions were given to the patient personally. All questions were answered and the patient understood all instructions, the instructions were also given to the patient in print. Time Spent with Patient Time attestation: Total time spent providing and/or coordinating discharge services: Discharge coordination time: Less than 30 minutes Quality: Safe Use of Opioids Does Pt have an Active Cancer Diagnosis on the Problem List?: No Quality: Stroke Does the patient have a stroke diagnosis?: No Physical Exam Vital Signs: Vital Signs: Last Vital Signs Temp 97.6 F 09/06/21 16:59 Pulse 67 09/06/21 16:59 Resp 16 09/06/21 16:59 BP 132/88 09/06/21 16:59 Pulse Ox 100 09/06/21 16:59 O2 Del Method 09/06/21 16:59 O2 Flow Rate 8 09/06/21 16:59 BMI result Body Mass Index 35.6 DS: Data Data Completed and Pending Pending studies at discharge: Pending at discharge 09/06/21 16:08 Surgical [PTH] Routine Labs on day of discharge: Laboratory Results - last 24 hr 09/06/21 11:02 COVID-19 ([facility]) Negative COVID-19 Clin Com See Note Discharge Plan Discharge Anticipated Discharge Date/Time: 09/07/21 10:59 Patient Disposition: Home, Self-Care Discharge Diagnosis: s/p sleeve gastrectomy Referrals: Jonathon Yao MD [Primary Care Provider] - 1 Week Discharge Medications: Continued hydroquinone 4 % cream 1 appl topical DAILY PRN (Reason: Rash) hydrocortisone 2.5 % cream 1 appl topical QAM PRN (Reason: Rash) ketoconazole 2 % cream 1 appl topical BID PRN (Reason: Rash) pantoprazole 40 mg tablet,delayed release (DR/EC) 40 mg PO DAILY Qty: 30 2RF ondansetron HCl 4 mg tablet 4 mg PO Q12H Qty: 20 0RF Discontinued cholecalciferol (vitamin D3) 125 mcg (5,000 unit) capsule 125 mcg PO DAILY Qty: 30 2RF mecobalamin (vitamin B12) 1,000 mcg tablet,disintegrating 1,000 mcg sublingual DAILY Qty: 30 2RF Rx Instructions: place tablet under tongue and allow to dissolve for at least30 secs before swallowing vitamin B complex [B Complex-Vitamin B12] Tablet 1 tab PO DAILY polyethylene glycol 3350 [Miralax] 17 gram powder in packet 17 g PO DAILY Qty: 14 0RF Rx Instructions: Mix each packet with 8oz of water and do 7 packets on 09/04/21 and another 7 packets on 09/05/21 Discharge Orders: Discharge Order (Routine); Ordered 09/07/21 Ordered By: Jaguar Ochoa Activity on Discharge: No heavy lifting Stand Alone Forms: Patient Portal Discharge page Care Plan Goals: weight loss Health Concerns: obesity Plan of Treatment: No tub baths, sex or returning to work until discussed at first post op appointment. No exercise, alcohol, tobacco or illegal drug use. Continue to use incentive spirometer hourly while awake. Walk in home for 5- 10 minutes every 2 hours during the first week. Continue phase 1 diet today and start phase 2 diet tomorrow morning. Follow all instructions in the bariatric handbook and call with any questions. 1. Please call your doctor or come back to the emergency room should any new symptoms arise. 2. You will receive a courtesy call from [facility] 24-48 hours after discharge. 3. Activity: abstain from alcohol, practice limited stair climbing, no bending, no driving, no exercise, no illicit substances, no lifting, no sex, no tub bath, no work. 4. Diet: continue as discussed with Dr. Ochoa. 5. Dressing Change/Wound Care: Do not change or remove surgical dressings unless they are wet or soiled. 6. Call your doctor if: - Your temperature exceeds 101.5 F - You experience excessive pain or swelling - You have an unexpected reaction to medication - You have excessive bleeding - You experience continued vomiting/nausea - Your incision begins to separate - Your incision shows signs of infection such as increased redness, swelling, excessive pain, heat, or drainage (light blood or clear fluid is normal) 7. General instructions: No lifting greater than 5 lbs for the next 4 weeks[address] driving within 24 hours of taking narcotic pain medications. If you do not move your bowels in the next 2 days, please take milk of magnesia over the counter. Please follow the post op diet and do not advance your diet until you are seen in the office in about 2 weeks. Please walk around your home every hour or two to prevent blood clots from forming in your legs. You do not need to wake from sleeping to walk. Please sleep in a bed or couch to prevent kinking at the hips and knees. Please take your incentive spirometer (your lung customer relations representative) home with you and use it for the next few days to prevent pneumonias. You may shower, no hot tubs, baths or swimming pools. Please call the office with any questions or concerns such as increasing abdominal pain, fever, chills, shortness of breath, chest pain, leg pain or swelling, or redness or drainage from your incisions. Do not hesitate to contact the office with any questions at . The patient's medical history has been reviewed and they are considered low risk for post op DVT and therefore DVT prophylaxis is not considered necessary. Travel after surgery was reviewed. The patient has not disclosed any travel plans during the first 30 days after surgery and they have been advised that within the first 30 days after surgery any bus, plane, train or car travel over 2 hours in duration is contraindicated due to the possibility of developing blood clots from immobility. Any travel, needs to include periods of ambulation of 10 minutes in duration every 2 hours. The patient was instructed to discuss any plans for travel during this period with their bariatric surgeon. Assessment: stable, post op sleeve gastrectomy
[2021-09-06] MEDS: ondansetron HCL 4 MG/2 ML VIAL IVPUSH ×2 (17:22→23:13)
[2021-09-06 18:26] LABS: Hemoglobin 13.2 g/dl (12.0-16.0)
[2021-09-06 18:56] LABS: Anion Gap 18 (12-20); Blood Urea Nitrogen 8 mg/dL (9-16); Calcium 8.2 mg/dL (8.4-10.2); Carbon Dioxide 17 mmol/L (22-29); Chloride 107 mmol/L (96-108); Creatinine Clr Calc Pharmacy 90.3; Estimated Glomerular Filt Rate > 60; Glucose Random 150 mg/dL (60-115); Potassium 5.9 mmol/L (3.3-5.1); Sodium 136 mmol/L (135-145)
[2021-09-06] MEDS: 0.9 % Sodium Chloride Flush 3 ML SYRINGE IVFLUSH (21:07)
[2021-09-07] VITALS: BP 135/84; PULSE 70; RESP 18; TEMP 36.5; O2SAT 97
[2021-09-07] MEDS: Metoclopramide HCl 10 MG/2 ML VIAL IVPUSH (03:26)
[2021-09-07 04:00] VITALS: BP 136/96; PULSE 91; RESP 18; TEMP 36.2; O2SAT 98
[2021-09-07] MEDS: Lactated Ringers 1,000 ML 100 ML IVCONT (04:28)
[2021-09-07] MEDS: ondansetron HCL 4 MG/2 ML VIAL IVPUSH (06:03)
[2021-09-07 06:29] LABS: MANUAL DIFF FLAG NO
[2021-09-07 06:46] LABS: Basophils Percent Auto 0.1 % (0-2); Hematocrit 42.6 % (37.0-47.0); Hemoglobin 13.9 g/dl (12.0-16.0); Imm Gran Abs Auto 0.03 X10*3/uL (0.00-0.03); Imm Gran Pct Auto 0.4 % (0.0-0.4); Lymphocytes Absolute Auto 1.7 X10*3/uL (1.2-4.9); Lymphocytes Percent Auto 19.8 % (20-40); Mean Corpuscular HGB Conc 32.6 g/dl (31.0-35.0); Mean Corpuscular Hemoglobin 28.3 pg (27.0-33.0); Mean Corpuscular Volume 86.6 fL (80.0-98.0); Mean Platelet Volume 9.9 fL (9.4-12.3); Monocytes Absolute Auto 0.3 X10*3/uL (0.1-1.2); Monocytes Percent Auto 3.2 % (2-11); Neutrophils Absolute Auto 6.5 x10*3/uL (2.0-8.3); Neutrophils Percent Auto 76.5 % (45-73); Platelet Count 354 X10*3/uL (160-400); Red Blood Count 4.92 X10*6/uL (4.20-5.50); Red Cell Distribution Width 12.7 % (11.0-16.0); White Blood Count 8.5 X10*3/uL (4.8-10.8)
[2021-09-07 06:57] LABS: Anion Gap 16 (12-20); Blood Urea Nitrogen 7 mg/dL (9-16); Calcium 8.8 mg/dL (8.4-10.2); Carbon Dioxide 24 mmol/L (22-29); Chloride 102 mmol/L (96-108); Creatinine Clr Calc Pharmacy 97.9; Estimated Glomerular Filt Rate > 60; Glucose Random 112 mg/dL (60-115); Potassium 4.3 mmol/L (3.3-5.1); Sodium 138 mmol/L (135-145)
[2021-09-07] MEDS: Famotidine/PF 20 MG/2 ML VIAL IVPUSH (07:23)
[2021-09-07 08:00] VITALS: BP 120/81; PULSE 77; RESP 18; TEMP 37.1; O2SAT 97
--- NOTE | 2021-09-07 08:44 | MHC.CM.PN ---
EMR REVIEWED, CM MET W/PT WHO REPORTS SHE LIVES ALONE, INDEPENDENT W/ALL CARE, DENIES USE OF DME AND HOME SERVICES, PT REPORTS PFIZER X3, PCP DARCY OZUNA AND HCP IS PT'S SON TARIK DE LA CRUZ [phone]. D/C PLAN: HOME TODAY W/OUTPT F/U ON 09/13, FRIEND FOR TRANSPORT
--- NOTE | 2021-09-07 11:16 | HO.POSTANES ---
Post Anesthesia Evaluation Post Anesthesia Evaluation Vital Signs: Vital Signs Temp Pulse Resp BP Pulse Ox O2 Del Method O2 Flow Rate 09/07/21 08:00 98.7 F 77 18 120/81 97 Room Air 09/07/21 04:00 97.2 F 91 18 136/96 H 98 Nasal Cannula 2 09/07/21 00:00 97.7 F 70 18 135/84 97 Nasal Cannula 2 Anesthesia: General Endotracheal-GETA Mental Status: Awake Pain Control: Satisfactory Nausea/Vomiting: None Hydration: Adequate Anesthesia-Related Issues: No Anes. Related Issues
== END 2021-09-07 13:40 | disposition home or self-care (01) | DRG 403 ==
LOC: HO.SSSA 17:03 → HO.S3 17:53
PROVIDERS: Physician Assistant; Admitting Provider Surgery; PCP Internal Medicine; Visit Provider Surgery
PROC: 0DB64Z3 Excision of Stomach, Percutaneous Endoscopic Approach, Vertical (ICD-10-PCS; CPT 43845; principal; 2021-09-06 12:50)
DX: E66.01 Morbid (severe) obesity due to excess calories (principal); K59.09 Other constipation; Z68.35 Body mass index [BMI] 35.0-35.9, adult; M54.9 Dorsalgia, unspecified; Z20.822 Contact with and (suspected) exposure to COVID-19; Z86.16 Personal history of COVID-19; Z98.51 Tubal ligation status; Z88.0 Allergy status to penicillin; Z79.899 Other long term (current) drug therapy
CPT/HCPCS: 36415; 80048; 85014; 85018; 85025; 86850; 86900; 86901; 87635; 88307; 88342; A4649; C9088; J0131; J1100; J1170; J1956; J2250; J2405; J2765; J2795; J3010

== ENCOUNTER 2021-09-21 16:08 | Outpatient (REF) | payer OTHER, SELFPAY ==
--- NOTE | ~2021-09-21 | MM_ITS ---
EXAMINATION: MM SCREENING DIGITAL BREAST TOMOSYNTHESIS, BILATERAL CLINICAL INFORMATION: Screening. Asymptomatic. The lifetime risk of breast cancer based on the Tyrer-Cuzick Model is 7.0%. COMPARISON: Mammography: November 26, 2019 and studies dating back to November 09, 2018 TECHNIQUE: Digital breast tomosynthesis is performed in both the craniocaudal and mediolateral oblique views along with computer-aided detection (CAD). Synthesized 2D images are generated from the tomosynthesis. FINDINGS: The breasts are almost entirely fatty (ACR BI-RADS breast composition Category a). There are no significant masses, abnormal calcifications, or other abnormalities. MM/MM tomosynthesis screening BI IMPRESSION: There are no significant changes from prior study. ASSESSMENT: BI-RADS 1: Negative RECOMMENDATION: Routine annual mammography screening. This patient's information was entered into a reminder system with a target due date for their next mammogram.
== END 2021-09-21 16:09 | disposition home or self-care (01) ==
LOC: HO.MAMMO 16:08
PROVIDERS: Visit Provider Internal Medicine
DX: Z12.31 Encounter for screening mammogram for malignant neoplasm of breast (principal)
CPT/HCPCS: 77063; 77067

== ENCOUNTER 2021-10-14 20:47 | Emergency (ER) | payer OTHER, SELFPAY ==
--- NOTE | ~2021-10-14 | CT_ITS ---
EXAMINATION: CT ABDOMEN AND PELVIS WITHOUT CONTRAST CLINICAL INFORMATION: Abdominal pain. Constipation. COMPARISON: 11/17/2019 CT. Ultrasound 04/20/2021 TECHNIQUE: Multidetector volumetric imaging was performed from the superior aspect of the liver through the pubic symphysis. Sagittal and coronal reformatted images were obtained on the technologist's workstation. This CT examination was performed using dose optimization techniques as appropriate, variously including the following: *Automated exposure control *Adjustment of mA and/or kV according to patient size (this includes techniques or standardized protocols for targeted exams where dose is matched to indication/reason for exam; i.e. extremities or head) *Use of iterative reconstruction technique DLP: 813 mGy-cm FINDINGS: LUNG BASES: The visualized lung bases are unremarkable. LIVER, GALLBLADDER, AND BILIARY TREE: The liver is normal in size, shape, and attenuation. No biliary ductal dilatation. There are multiple hypoattenuating liver lesions. The dominant lesion is seen in segment 8, new from the 2019 study. This has multiple lobulations and measures 5.3 cm. This measures simple fluid attenuation. There are additional smaller cystic structures which are new or increased from prior.. Gallbladder is absent. PANCREAS: Unremarkable. SPLEEN: Unremarkable. ADRENAL GLANDS: Unremarkable. KIDNEYS AND URETERS: The kidneys are normal in size, shape, and attenuation. No hydronephrosis, hydroureter, or calculi seen. No perinephric stranding. BLADDER: Unremarkable. GASTROINTESTINAL TRACT: Gastric sleeve. Normal caliber small bowel. No obstruction. Normal appendix. No colonic wall thickening or inflammation. Scattered diverticulosis without diverticulitis. Prominent stool in the rectum. Moderate colonic stool burden. ABDOMINAL WALL: No significant hernia is appreciated. LYMPH NODES: Normal. VASCULAR: Unremarkable. PELVIC VISCERA: The uterus and adnexa are unremarkable. OSSEOUS STRUCTURES: No acute or suspicious osseous abnormality. Mild iterative change of the spine. CT/CT abdomen pelvis wo con IMPRESSION: Moderate colonic stool burden with prominent stool distending the rectum. No acute inflammation. Multiple hypoattenuating liver lesions with the dominant lesion from the previous CT in 2019. This is visualized on prior ultrasound. There was question of hemangioma at that time. Suggest nonemergent MRI evaluation using dynamic liver protocol. Fleischner guidelines were followed.
[2021-10-14 21:32] VITALS: BP 94/59; PULSE 90; RESP 16; TEMP 36.9; O2SAT 97; BMI 31.0
[2021-10-14 21:49] LABS: Hematocrit 43.5 % (37.0-47.0); Hemoglobin 14.6 g/dl (12.0-16.0); Mean Corpuscular HGB Conc 33.6 g/dl (31.0-35.0); Mean Corpuscular Hemoglobin 28.9 pg (27.0-33.0); Mean Platelet Volume 10.6 fL (9.4-12.3); Platelet Count 327 X10*3/uL (160-400); Red Blood Count 5.06 X10*6/uL (4.20-5.50); White Blood Count 8.9 X10*3/uL (4.8-10.8)
[2021-10-14 22:07] LABS: Alanine Aminotransferase 26 U/L (0-31); Albumin Level 4.1 g/dL (3.5-5.0); Alkaline Phosphatase 61 U/L (39-117); Anion Gap 23 (12-20); Aspartate Amino Transferase 32 U/L (5-31); Bilirubin Total 0.5 mg/dL (0.0-1.0); Blood Urea Nitrogen 10 mg/dL (9-16); Calcium 8.8 mg/dL (8.4-10.2); Carbon Dioxide 21 mmol/L (22-29); Chloride 101 mmol/L (96-108); Estimated Glomerular Filt Rate > 60; Glucose Random 99 mg/dL (60-115); Potassium 3.2 mmol/L (3.3-5.1); Sodium 142 mmol/L (135-145); Total Protein 7.1 g/dL (6.5-8.0)
--- NOTE | 2021-10-15 00:26 | ED.ABDPAIN ---
HPI - Abdominal Pain General Chief Complaint: Abdominal Pain Stated Complaint: constipated Time Seen by Provider: 10/15/21 00:13 Source: patient Mode of arrival: ambulatory Limitations: no limitations History of Present Illness HPI narrative: Patient comes to the emergency room complaining of 1 week of constipation. Patient states that she has been prescribed [id number] glycerin suppositories without any relief. Patient states that yesterday she started having rectal bleeding. Patient denies any history of hemorrhoids. Related Data Home Medications Medication Instructions Recorded Confirmed sucralfate 100 mg/mL oral 10 ml PO BID 09/22/21 10/11/21 suspension Previous Rx's Medication Instructions Recorded pantoprazole 40 mg tablet,delayed 40 mg PO DAILY #30 tabs 08/26/21 release hydrocortisone 2.5 % topical cream 1 appl [place] DAILY PRN hemorrhoids 10/15/21 with perineal applicator #30 grams (Proctosol HC) polyethylene glycol 3350 17 gram 17 g PO DAILY #14 ea 10/15/21 oral powder packet (Miralax) Allergies Allergy/AdvReac Type Severity Reaction Status Date / Time penicillin G Allergy Unknown Hives Verified 09/13/21 15:12 Review of Systems Review of Systems Constitutional : No Weight loss, No Fever, No Chills, No Night Sweats, No Fatigue, No Malaise ENT/Mouth : No Hearing loss, No Ear Pain, No Nasal Congestion, No Sinus Pain, No Hoarseness, No sore throat, No Rhinorrhea, No Swallowing Difficulty Eyes: No Eye Pain, No Swelling, No Redness, No Foreign Body, No Discharge, No Vision Changes Cardiovascular : No Chest Pain, No SOB, No Dyspnea on Exertion, No Orthopnea, No Edema, No Palpitations Respiratory : No Cough, No Sputum, No Wheezing, No Smoke Exposure, No Dyspnea Gastrointestinal : Complaining of nausea, no vomiting, no diarrhea, constipation for 1 week, diffuse abdominal pain, complaining of rectal bleeding since yesterday Genitourinary : no irregular bleeding, No Dysuria, No Urinary Frequency, No Hematuria, No Urinary Incontinence, No Urgency, No Flank Pain, No Urinary Flow Changes, No Hesitancy Musculoskeletal : No joint pain, No Myalgias, No Joint Swelling Skin : No Skin Lesions, No rash Neuro : No Weakness, No Numbness, No Paresthesias, No Loss of Consciousness, No Dizziness, No Headache Psych : No Anxiety/Panic, No Depression, No SI/HI/AH/VH, No Social Issues, Heme/Lymph: No Bruising, No Bleeding,No Lymphadenopathy Endocrine : No Polyuria, No Polydipsia, No Temperature Intolerance [facility] Past Medical History Medical History Abnormal CBC Abnormal EKG Abnormal stress test Anemia Anemia Back pain BMI 35.0-35.9,adult BMI 37.0-37.9, adult BMI 38.0-38.9,adult Breast screening Chronic constipation Daytime somnolence Eczema Encounter for general adult medical examination with abnormal findings Encounter for routine gynecological examination Flank pain Foul smelling urine Grieving History of COVID-19 Obesity Physical exam, annual Preoperative examination Vitamin B12 deficiency Vitamin D deficiency Surgical History Hx of abdominoplasty Hx of bilateral breast reduction surgery S/P laparoscopic sleeve gastrectomy Status post cholecystectomy Status post laparoscopic cholecystectomy Tubal ligation status Family History Family History Father Heart disease Mother No problems noted. Brother DM (diabetes mellitus) Brother No problems noted. Brother No problems noted. Sister No problems noted. Sister No problems noted. Sister No problems noted. Son No problems noted. Son No problems noted. Daughter No problems noted. Daughter No problems noted. 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 Oriented X3. Seems uncomfortable Eyes: Pupils equal, round and reactive to light. ENT: Pharynx normal. Neck: Normal inspection. Neck supple. No lymph nodes noted. No crepitus CVS: Normal heart rate and rhythm. Pulses normal. Normal S1 and S2 Respiratory: No respiratory distress. Breath sounds normal. No Wheezing. No rales Abdomen: Soft and nontender. No rigidity. No distention. No guarding, no rebound Skin: Skin warm and dry. Normal skin color. Normal skin turgor. Extremities: No lower extremity edema. No Lacerations. No Rash Neuro: Oriented X 3. No motor deficit. No sensory deficit. Moving all extremities. No slurred speech. CN 2 through 12 grossly intact Psych: calm, cooperative, normal affect Course Course Course Narrative: White blood cell count within normal limits, potassium is slightly decreased at 3.2, patient is being repleted with p.o. potassium. CT scan pending. On physical exam, patient has a large thrombosed hemorrhoid at the 3 o'clock position. Patient refused to have the thrombosed hemorrhoid injected with lidocaine or lanced. Patient wants to try topical medications 1st. I discussed the labs and imaging with Abebe osullivan from bariatric surgery. At this time, the recommendations are to have the patient have a mineral oil enema. Patient is agreeable. Also, the recommendations are that patient can have 2 protein shakes, 1 protein water and when yogurt, patient also instructed to take MiraLax daily, liquid diet until she is seen by bariatric surgery early next week. Patient received a mineral oil enema, patient did not have a bowel movement. Now patient is getting a suds enema. CAIT osullivan is on his way in to evaluate the patient. Disposition pending. Sign-out given to Dr. Cisse [facility] - Abdominal Pain Lab Data Result diagrams: 10/14/21 21:41 10/14/21 21:41 Labs: Lab Results 10/14/21 10/14/21 10/15/21 Range/Units 21:41 21:41 00:52 WBC 8.9 (4.8-10.8) X10*3/uL RBC 5.06 (4.20-5.50) X10*6/uL Hgb 14.6 (12.0-16.0) g/dl Hct 43.5 (37.0-47.0) % MCV 86.0 (80.0-98.0) fL MCH 28.9 (27.0-33.0) pg MCHC 33.6 (31.0-35.0) g/dl RDW 14.0 (11.0-16.0) % Plt Count 327 (160-400) X10*3/uL MPV 10.6 (9.4-12.3) fL Absolute Nucleated RBC 0.000 (0.0-0.012) X10*3/uL Nucleated RBC % (auto) 0.0 (0.0-0.2) /100WBC Sodium 142 (135-145) mmol/L Potassium 3.2 L D (3.3-5.1) mmol/L Chloride 101 (96-108) mmol/L Carbon Dioxide 21 L (22-29) mmol/L Anion Gap 23 H (12-20) BUN 10 (9-16) mg/dL Creatinine 0.91 (0.5-1.4) mg/dL Estim Creat Clear Calc 86.0 Estimated GFR > 60 Random Glucose 99 (60-115) mg/dL Calcium 8.8 (8.4-10.2) mg/dL Total Bilirubin 0.5 (0.0-1.0) mg/dL AST 32 H (5-31) U/L ALT 26 (0-31) U/L Alkaline Phosphatase 61 D (39-117) U/L Total Protein 7.1 (6.5-8.0) g/dL Albumin 4.1 (3.5-5.0) g/dL Stool Occult Blood POSITIVE (NEGATIVE) Discharge Plan Discharge Clinical Impression: Constipation, Hemorrhoid Patient Disposition: Still a Patient Instructions: Constipation (ED), Hemorrhoids (ED) Additional Instructions: Please drink 2 shakes and when protein water and when you work per day. For constipation you may use MiraLax once a day. Stay on a liquid diet until you are seen by your surgeon. Please follow-up with your primary care physician tomorrow. If you have any worsening or new symptoms, please return to the emergency room or call 911 Prescriptions: New hydrocortisone [Proctosol HC] 2.5 % cream with perineal applicator 1 appl HI DAILY PRN (Reason: hemorrhoids) Qty: 30 0RF polyethylene glycol 3350 [Miralax] 17 gram powder in packet 17 g PO DAILY Qty: 14 0RF No Action pantoprazole 40 mg tablet,delayed release (DR/EC) 40 mg PO DAILY Qty: 30 2RF sucralfate 100 mg/mL suspension 10 ml PO BID
[2021-10-15] MEDS: Potassium Chloride Packet 20 MEQ PACKET 40 MEQ PO (00:43)
[2021-10-15 00:58] LABS: OBS Int Ctl Valid YES; OBS1 POSITIVE (NEGATIVE)
[2021-10-15] MEDS: Mineral OiL enema 133 ML ENEMA PR (02:32)
[2021-10-15] MEDS: Ondansetron ODT 4 MG TAB.RAPDIS TRANSLINGU (02:32)
--- NOTE | 2021-10-15 09:30 | P.CONGS_ITS ---
History of Present Illness Consult details Consult date: 10/15/21 Reason for consult: abdominal pain Narrative: 51 yo F s/p LSG 09/06/[address] Ochoa last seen in the office for a well visit pos-op f/u on 10/11, presented to the ER with abdominal pain and a complaint of a 1 week hx of constipation. Previous meal plan, 1 shake, 1 protein water, 2 yogurts and at that visit recommendation to change to 2 shakes 1 oz egg and 1 yogurt. Pt states she had been tolerating the shakes and yogurt without difficulty and the abdominal pain started yesterday. 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 Currently with abdominal discomfort, mild nause, no vomiting. w/u in the ER mild hypokalemia(3.2), CT moderate colonic stool burden and stool in rectal vault, otherwise unremarkable. Also reported was a thrombosed hemorrhoid. Rec'd mineral oil enema and soapsuds enema with no results yet. Review of Systems Review of Systems: Yes all other systems are reviewed and are negative PMFSH Past Medical History Medical History Abnormal CBC Abnormal EKG Abnormal stress test Anemia Anemia Back pain BMI 35.0-35.9,adult BMI 37.0-37.9, adult BMI 38.0-38.9,adult Breast screening Chronic constipation Daytime somnolence Eczema Encounter for general adult medical examination with abnormal findings Encounter for routine gynecological examination Flank pain Foul smelling urine Grieving History of COVID-19 Obesity Physical exam, annual Preoperative examination Vitamin B12 deficiency Vitamin D deficiency Family History Family History Father Heart disease Mother No problems noted. Brother DM (diabetes mellitus) Brother No problems noted. Brother No problems noted. Sister No problems noted. Sister No problems noted. Sister No problems noted. Son No problems noted. Son No problems noted. Daughter No problems noted. Daughter No problems noted. Surgical History Surgical History Hx of abdominoplasty Hx of bilateral breast reduction surgery S/P laparoscopic sleeve gastrectomy Status post cholecystectomy Status post laparoscopic cholecystectomy Tubal ligation status Social History Social History Housing: House Are you a primary medicare compliance auditor to a significant other at home: No Do you presently have visiting nurse or other home services: No Alcohol intake: current Alcohol intake frequency: does not drink Patient Tobacco Use Status: Never used Tobacco e-Cigarette/Vaping Use: Never Used Second Hand Smoke Exposure: No Advance Directives: No Advance Directives Information Provided: Yes service: No Current occupational status: employed 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 [employer] Current occupational exposures/hazards: No Cognitive needs: No Hearing needs: No Vision needs: No Meds Allergies Allergy/AdvReac Type Severity Reaction Status Date / Time penicillin G Allergy Unknown Hives Verified 09/13/21 15:12 Home Medications Medication Instructions Recorded Confirmed Last Taken Type sucralfate 100 mg/mL oral 10 ml PO BID 09/22/21 10/11/21 Unknown History suspension Physical Exam Vital Signs: Vital Signs: Last Vital Signs Temp 98.5 F 10/14/21 21:32 Pulse 90 10/14/21 21:32 Resp 16 10/14/21 21:32 BP 94/59 L 10/14/21 21:32 Pulse Ox 97 10/14/21 21:32 O2 Del Method 10/14/21 21:32 BMI result Body Mass Index 31.0 GI: Rectal Exam - Female: External hemorrhoid(s) present (thrombosed in 3 o'clock position while in Right lateral recumbent position) Results Labs Result diagrams: 10/14/21 21:41 10/14/21 21:41 Labs: Abnormal lab results 10/14/21 Range/Units 21:41 Potassium 3.2 L D (3.3-5.1) mmol/L Carbon Dioxide 21 L (22-29) mmol/L Anion Gap 23 H (12-20) AST 32 H (5-31) U/L Short CBC 10/14/21 Range/Units 21:41 WBC 8.9 (4.8-10.8) X10*3/uL Hgb 14.6 (12.0-16.0) g/dl Hct 43.5 (37.0-47.0) % Plt Count 327 (160-400) X10*3/uL BMP 10/14/21 21:41 Sodium 142 Potassium 3.2 L D Chloride 101 Carbon Dioxide 21 L BUN 10 Creatinine 0.91 Calcium 8.8 Liver Function 10/14/21 Range/Units 21:41 Total Bilirubin 0.5 (0.0-1.0) mg/dL AST 32 H (5-31) U/L ALT 26 (0-31) U/L Alkaline Phosphatase 61 D (39-117) U/L Albumin 4.1 (3.5-5.0) g/dL All other labs normal. Assessment and Plan (1) Constipation: Status: Acute fleets enema until BM, then likely ok to go home with bowel regimen of 200 mg colace BID and 17 gm Miralax daily. 40-60 oz fluid intake daily. If no results with fleets then GoLytely PO slowly at rate of 1 oz per 15 min until fnished prep (2) Hemorrhoid: Status: Acute External thrombosed hemorrhoid. Topical treatment with OTC Preparation H or Anusol daily. Discussed strategy to avoid worsening including goal of daily soft stools and not to sit on the toilet for longer than 5 mintues. If sitting down and no BM then to get up and try later, avoiding straining. (3) S/P laparoscopic sleeve gastrectomy: Status: Acute Liquid diet until constipation resolved. Wakes by 7am Take 1 calcium chew 9am - 12pm - protein water (Premier Protein Clear) 1 - 4 pm Premier Protein ready to drink shake 6 - 9 pm- Premier shake- with MVI Second calcium chew Follow up in the office next week Plan discussed and examined with Dr Krueger Procedures Date of Service Date of Service: 10/15/21
[2021-10-15] MEDS: Sodium Phosphate,Mono-Dibasic 133 ML ENEMA PR (09:42)
== END 2021-10-15 11:11 | disposition home or self-care (01) ==
PROVIDERS: Emergency Provider Emergency Medicine
DX: K59.00 Constipation, unspecified (principal); K64.5 Perianal venous thrombosis; R10.9 Unspecified abdominal pain; Z98.84 Bariatric surgery status
CPT/HCPCS: 36415; 74176; 80053; 82272; 85027; 99282; 99284

== ENCOUNTER 2021-10-22 20:15 | Emergency (ER) | payer OTHER, SELFPAY ==
--- NOTE | ~2021-10-22 | CT_ITS ---
EXAMINATION: CT ABDOMEN AND PELVIS WITHOUT CONTRAST CLINICAL INFORMATION: Difficulty urinating with constipation. COMPARISON: 10/15/2021 TECHNIQUE: Multidetector volumetric imaging was performed from the superior aspect of the liver through the pubic symphysis. Sagittal and coronal reformatted images were obtained on the technologist's workstation. This CT examination was performed using dose optimization techniques as appropriate, variously including the following: *Automated exposure control *Adjustment of mA and/or kV according to patient size (this includes techniques or standardized protocols for targeted exams where dose is matched to indication/reason for exam; i.e. extremities or head) *Use of iterative reconstruction technique DLP: 821 mGy-cm FINDINGS: LUNG BASES: The visualized lung bases are unremarkable. LIVER, GALLBLADDER, AND BILIARY TREE: The liver is normal in size, shape, and attenuation. No biliary ductal dilatation. The lobulated 5.3 x 4.1 cm mass in segment 8 is again noted, unchanged from recent prior. Cyst noted in segment 6, unchanged.. Cholecystectomy. PANCREAS: Unremarkable. SPLEEN: Unremarkable. ADRENAL GLANDS: Unremarkable. KIDNEYS AND URETERS: The kidneys are normal in size, shape, and attenuation. No hydronephrosis, hydroureter, or calculi seen. No perinephric stranding. BLADDER: Unremarkable. GASTROINTESTINAL TRACT: Status post gastric sleeve. Normal caliber small bowel. No obstruction. There is prominent stool seen throughout the colon, increased from the previous study. Increased stool distending the rectum, with the rectum measuring 6.7 cm transverse. There is increased rectal wall thickening with associated adjacent inflammation. Colonic diverticulosis noted without diverticulitis. No free air. ABDOMINAL WALL: No significant hernia is appreciated. LYMPH NODES: Normal. VASCULAR: Unremarkable. PELVIC VISCERA: The uterus and adnexa are unremarkable. OSSEOUS STRUCTURES: No acute or suspicious osseous abnormality. Mild degenerative changes of the spine and hips. CT/CT abdomen pelvis wo con IMPRESSION: Prominent stool distending the rectum, with increased wall thickening and adjacent inflammation compared to prior. This is consistent with stercoral colitis. Unchanged lobulated hypoattenuating mass in the right lobe of the liver. As previously suggested, suggest nonemergent dynamic liver protocol MRI to better evaluate. Fleischner guidelines were followed.
[2021-10-22 20:21] VITALS: BP 128/62; PULSE 105; RESP 18; TEMP 37; O2SAT 98; BMI 31.0
--- NOTE | 2021-10-22 20:34 | ECG_ITS ---
Test Reason : ABDOMINAL PAIN Blood Pressure : / mmHG Vent. Rate : 091 BPM Atrial Rate : 091 BPM P-R Int : 158 ms QRS Dur : 078 ms QT Int : 364 ms P-R-T Axes : 040 -01 -20 degrees QTc Int : 447 ms Normal sinus rhythm Minimal voltage criteria for LVH, may be normal variant ( R in aVL ) T wave abnormality, consider inferior ischemia T wave abnormality, consider anterior ischemia Abnormal ECG When compared with ECG of 23-MAY-2021 21:07, Inverted T waves have replaced nonspecific T wave abnormality in Inferior leads T wave inversion more evident in Anterior leads Referred By: Brenna Blair Electronically Signed By:MIA DIAZ
--- NOTE | 2021-10-22 20:56 | ECG_ITS ---
Test Reason : POSTERIOR Blood Pressure : / mmHG Vent. Rate : 080 BPM Atrial Rate : 080 BPM P-R Int : 154 ms QRS Dur : 078 ms QT Int : 382 ms P-R-T Axes : 033 007 -03 degrees QTc Int : 440 ms Normal sinus rhythm Nonspecific T wave abnormality Abnormal ECG When compared with ECG of 22-OCT-2021 20:43, T wave inversion no longer evident in Anterior leads Referred By: Generic ED Physician Electronically Signed By:MIA DIAZ
[2021-10-22 21:15] LABS: MANUAL DIFF FLAG NO
[2021-10-22 21:16] LABS: Basophils Absolute Auto 0.1 X10*3/uL (0.0-0.2); Basophils Percent Auto 0.6 % (0-2); Eosinophils Percent Auto 0.3 % (0-4); Hemoglobin 15.1 g/dl (12.0-16.0); Imm Gran Abs Auto 0.09 X10*3/uL (0.00-0.03); Imm Gran Pct Auto 0.9 % (0.0-0.4); Lymphocytes Percent Auto 38.3 % (20-40); Mean Corpuscular HGB Conc 33.6 g/dl (31.0-35.0); Mean Corpuscular Hemoglobin 28.4 pg (27.0-33.0); Mean Corpuscular Volume 84.7 fL (80.0-98.0); Monocytes Percent Auto 9.9 % (2-11); Neutrophils Absolute Auto 5.2 x10*3/uL (2.0-8.3); Platelet Count 362 X10*3/uL (160-400); Red Blood Count 5.31 X10*6/uL (4.20-5.50); Red Cell Distribution Width 13.9 % (11.0-16.0); White Blood Count 10.4 X10*3/uL (4.8-10.8)
[2021-10-22 21:37] LABS: Alanine Aminotransferase 19 U/L (0-31); Albumin Level 3.7 g/dL (3.5-5.0); Alkaline Phosphatase 65 U/L (39-117); Anion Gap 17 (12-20); Aspartate Amino Transferase 26 U/L (5-31); Bilirubin Total 0.6 mg/dL (0.0-1.0); Blood Urea Nitrogen 14 mg/dL (9-16); Carbon Dioxide 29 mmol/L (22-29); Chloride 99 mmol/L (96-108); Creatinine Clr Calc Pharmacy 97.8; Estimated Glomerular Filt Rate > 60; Glucose Random 116 mg/dL (60-115); Magnesium 2.2 mg/dL (1.6-2.6); Phosphorus 1.8 mg/dL (2.7-4.5); Potassium 3.1 mmol/L (3.3-5.1); Sodium 142 mmol/L (135-145); Total Protein 6.9 g/dL (6.5-8.0)
--- NOTE | 2021-10-23 02:18 | ED_ITS ---
HPI - General Adult General Chief complaint: General Medical Stated complaint: back pain, dr told her to ask for a CT scan Time Seen by Provider: 10/22/21 20:46 Source: patient Mode of arrival: ambulatory Limitations: no limitations History of Present Illness HPI narrative: Patient is status post gastric sleeve surgery 09/06 complaining of constipation for last few days been to [facility] did a CT scan and used enema without much response feel pain in the rectum area all same that has difficulty urinating today Related Data Home Medications Medication Instructions Recorded Confirmed sucralfate 100 mg/mL oral 10 ml PO BID 09/22/21 10/11/21 suspension Previous Rx's Medication Instructions Recorded pantoprazole 40 mg tablet,delayed 40 mg PO DAILY #30 tabs 08/26/21 release hydrocortisone 2.5 % topical cream 1 appl [place] DAILY PRN hemorrhoids 10/15/21 with perineal applicator #30 grams (Proctosol HC) polyethylene glycol 3350 17 gram 17 g PO DAILY #14 ea 10/15/21 oral powder packet (Miralax) docusate sodium 50 mg/5 mL oral 100 mg (10 mL) PO BID #200 mL 10/20/21 liquid Allergies Allergy/AdvReac Type Severity Reaction Status Date / Time penicillin G Allergy Unknown Hives Verified 09/13/21 15:12 Review of Systems Review of Systems: Yes all other systems are reviewed and are negative PMFSH Past Medical History Medical History Abnormal CBC Abnormal EKG Abnormal stress test Anemia Anemia Back pain BMI 35.0-35.9,adult BMI 37.0-37.9, adult BMI 38.0-38.9,adult Breast screening Chronic constipation Daytime somnolence Eczema Encounter for general adult medical examination with abnormal findings Encounter for routine gynecological examination Flank pain Foul smelling urine Grieving History of COVID-19 Obesity Physical exam, annual Preoperative examination Vitamin B12 deficiency Vitamin D deficiency Surgical History Hx of abdominoplasty Hx of bilateral breast reduction surgery S/P laparoscopic sleeve gastrectomy Status post cholecystectomy Status post laparoscopic cholecystectomy Tubal ligation status Family History Family History Father Heart disease Mother No problems noted. Brother DM (diabetes mellitus) Brother No problems noted. Brother No problems noted. Sister No problems noted. Sister No problems noted. Sister No problems noted. Son No problems noted. Son No problems noted. Daughter No problems noted. Daughter No problems noted. 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 Oriented X3. No acute distress. Eyes: PERRLA, No Nystagmus ENT: Pharynx normal. Oral Mucosa moist Neck: Normal inspection. Neck supple. CVS: Normal heart rate and rhythm. Pulses normal. Respiratory: No respiratory distress. Equal air entry bilateral, no wheezing/rales/rhonchi Abdomen: Soft and nontender. Bowel sounds are present, no mass palpable, no CVA tenderness Rectal: Hard stool in the rectum Skin: Skin warm and dry. Normal skin color. Normal skin turgor. Extremities: No lower extremity edema. No calf tenderness Neuro: Oriented X 3. Medical Decision Making MDM Narrative Medical decision making narrative: Patient after fecal disimpaction bladder scan showed only to 45 cc urine patient does not want to drink water at this time will discharge patient home advised to follow-up with her surgeon Lab Data Lab results reviewed: Yes I reviewed the patient's lab results. Result diagrams: 10/22/21 21:11 10/22/21 21:11 Labs: Lab Results 10/22/21 10/22/21 Range/Units 21:11 21:11 WBC 10.4 (4.8-10.8) X10*3/uL RBC 5.31 (4.20-5.50) X10*6/uL Hgb 15.1 (12.0-16.0) g/dl Hct 45.0 (37.0-47.0) % MCV 84.7 (80.0-98.0) fL MCH 28.4 (27.0-33.0) pg MCHC 33.6 (31.0-35.0) g/dl RDW 13.9 (11.0-16.0) % Plt Count 362 (160-400) X10*3/uL MPV 10.0 (9.4-12.3) fL Immature Gran % (Auto) 0.9 H (0.0-0.4) % Neut % (Auto) 50.0 (45-73) % Lymph % (Auto) 38.3 (20-40) % Sharp % (Auto) 9.9 (2-11) % Eos % (Auto) 0.3 (0-4) % Baso % (Auto) 0.6 (0-2) % Lymph # (Auto) 4.0 (1.2-4.9) X10*3/uL Sharp # (Auto) 1.0 (0.1-1.2) X10*3/uL Eos # (Auto) 0.0 (0.0-0.4) X10*3/uL Baso # (Auto) 0.1 (0.0-0.2) X10*3/uL Abs Immat Gran (auto) 0.09 H (0.00-0.03) X10*3/uL Absolute Neuts (auto) 5.2 (2.0-8.3) x10*3/uL Absolute Nucleated RBC 0.000 (0.0-0.012) X10*3/uL Nucleated RBC % (auto) 0.0 (0.0-0.2) /100WBC Sodium 142 (135-145) mmol/L Potassium 3.1 L (3.3-5.1) mmol/L Chloride 99 (96-108) mmol/L Carbon Dioxide 29 (22-29) mmol/L Anion Gap 17 (12-20) BUN 14 (9-16) mg/dL Creatinine 0.80 (0.5-1.4) mg/dL Estim Creat Clear Calc 97.8 Estimated GFR > 60 Random Glucose 116 H (60-115) mg/dL Calcium 9.0 (8.4-10.2) mg/dL Phosphorus 1.8 L (2.7-4.5) mg/dL Magnesium 2.2 (1.6-2.6) mg/dL Total Bilirubin 0.6 (0.0-1.0) mg/dL AST 26 (5-31) U/L ALT 19 (0-31) U/L Alkaline Phosphatase 65 (39-117) U/L Total Protein 6.9 (6.5-8.0) g/dL Albumin 3.7 (3.5-5.0) g/dL Discharge Plan Discharge Clinical Impression: Fecal impaction in rectum Patient Disposition: Home, Self-Care Instructions: Fecal Impaction (ED) Additional Instructions: Drink plenty of fluids continue to take MiraLax as advised Follow-up with your surgeon Prescriptions: No Action docusate sodium 50 mg/5 mL liquid 100 mg PO BID Qty: 200 5RF hydrocortisone [Proctosol HC] 2.5 % cream with perineal applicator 1 appl [place] DAILY PRN (Reason: hemorrhoids) Qty: 30 0RF polyethylene glycol 3350 [Miralax] 17 gram powder in packet 17 g PO DAILY Qty: 14 0RF pantoprazole 40 mg tablet,delayed release (DR/EC) 40 mg PO DAILY Qty: 30 2RF sucralfate 100 mg/mL suspension 10 ml PO BID
[2021-10-23 04:00] VITALS: BP 119/72; PULSE 69; RESP 14; O2SAT 98
[2021-10-23] MEDS: Potassium Chloride ER 20 MEQ TAB.ER.PRT PO (04:32)
== END 2021-10-23 04:33 | disposition home or self-care (01) ==
PROVIDERS: Physician Assistant; Emergency Provider Internal Medicine; PCP Internal Medicine
DX: K56.49 Other impaction of intestine (principal); R10.9 Unspecified abdominal pain; M54.50 Low back pain, unspecified; Z98.84 Bariatric surgery status; Z79.899 Other long term (current) drug therapy
CPT/HCPCS: 36415; 74176; 80053; 83735; 84100; 85025; 93005; 99284

== ENCOUNTER 2022-02-17 09:08 | Outpatient (REF) | payer OTHER, SELFPAY ==
[2022-02-21 19:29] LABS: TS Negative Control Passed; TS Panel A 0; TS Panel B 0; TS Positive Control Passed; TSpotTB Negative (Negative)
== END 2022-02-17 09:09 | disposition home or self-care (01) ==
LOC: HO.HMGCLDS 09:08
PROVIDERS: PCP Internal Medicine; Visit Provider Internal Medicine
DX: Z11.1 Encounter for screening for respiratory tuberculosis (principal)
CPT/HCPCS: 36415; 86481

== ENCOUNTER 2022-08-22 09:39 | Outpatient (REF) | payer OTHER, SELFPAY ==
[2022-08-22 11:27] LABS: MANUAL DIFF FLAG NO
[2022-08-22 11:35] LABS: Basophils Percent Auto 0.5 % (0-2); Eosinophils Absolute Auto 0.1 X10*3/uL (0.0-0.4); Eosinophils Percent Auto 2.2 % (0-4); Hematocrit 42.5 % (37.0-47.0); Hemoglobin 13.7 g/dl (12.0-16.0); Imm Gran Abs Auto 0.02 X10*3/uL (0.00-0.03); Imm Gran Pct Auto 0.4 % (0.0-0.4); Lymphocytes Absolute Auto 2.8 X10*3/uL (1.2-4.9); Lymphocytes Percent Auto 51.1 % (20-40); Mean Corpuscular HGB Conc 32.2 g/dl (31.0-35.0); Mean Corpuscular Hemoglobin 28.5 pg (27.0-33.0); Mean Corpuscular Volume 88.4 fL (80.0-98.0); Mean Platelet Volume 9.9 fL (9.4-12.3); Monocytes Absolute Auto 0.4 X10*3/uL (0.1-1.2); Monocytes Percent Auto 6.7 % (2-11); Neutrophils Absolute Auto 2.2 x10*3/uL (2.0-8.3); Neutrophils Percent Auto 39.1 % (45-73); Platelet Count 348 X10*3/uL (160-400); Red Blood Count 4.81 X10*6/uL (4.20-5.50); White Blood Count 5.5 X10*3/uL (4.8-10.8)
[2022-08-22 11:53] LABS: Estimated Average Glucose 94 mg/dL; Hemoglobin A1c % 4.9 %
[2022-08-22 12:00] LABS: Alanine Aminotransferase 21 U/L (0-31); Albumin Level 3.8 g/dL (3.5-5.0); Alkaline Phosphatase 62 U/L (39-117); Anion Gap 13 (12-20); Aspartate Amino Transferase 21 U/L (5-31); Bilirubin Total 0.7 mg/dL (0.0-1.0); Blood Urea Nitrogen 10 mg/dL (9-16); Calcium 9.2 mg/dL (8.4-10.2); Carbon Dioxide 27 mmol/L (22-29); Chloride 107 mmol/L (96-108); Cholesterol 154 mg/dL; Estimated Glomerular Filt Rate > 60; Glucose Fasting 89 mg/dL (60-99); HDL Cholesterol 53 mg/dL; LDL Cholesterol Calculated 91 mg/dl; Potassium 3.6 mmol/L (3.3-5.1); Sodium 143 mmol/L (135-145); Total Protein 6.8 g/dL (6.5-8.0); Triglycerides 53 mg/dL
== END 2022-08-22 09:40 | disposition home or self-care (01) ==
LOC: HO.HMGCLDS 09:39
PROVIDERS: PCP Internal Medicine; Visit Provider Internal Medicine
DX: Z00.01 Encounter for general adult medical examination with abnormal findings (principal); N89.8 Other specified noninflammatory disorders of vagina
CPT/HCPCS: 36415; 80053; 80061; 83036; 85025

== ENCOUNTER 2024-07-09 08:36 | Outpatient (AMB) | payer BC, SELFPAY ==
--- NOTE | 2024-07-09 08:38 | A.OFFVIS_ITS ---
VS Expanded 07/09/24 08:53 BP 132/74 Blood Pressure Location Rt brachial Blood Pressure Position Sitting Pulse 84 Pulse Source Pulse Oximeter Temp 98.2 F Temperature Source Temporal Artery Scan Pulse Oximetry 96 Oxygen Delivery Method Room Air Height 5 ft 7 in Weight 187 lb 6.4 oz BMI 29.3 Body Fat % 33.3 Body Fat Mass 62.4 Fat Free Mass 125.0 Visceral Fat Rating 8.0 Body Water % 47.4 Body Water Mass 88.8 Muscle Mass/Score 118.6 Basal Metabolic Rate/Score 1,682 Intake Visit Reasons: OV PO LSG 09/06/21 Yoker Required: No Allergies penicillin G Allergy (Unknown, Verified 07/09/24 08:44) Hives Medication List - Last Reconciled 07/09/24 by CAIT Elizalde hydrocortisone 2.5% (Proctosol HC) 1 appl PA DAILY PRN hydroquinone 4% appl topical pseudoephedrine HCl (Sudafed) 30 mg PO BID 2 days sodium chloride 0.65% (Saline Mist) 1 spray intranasal BID 4 days HPI Comments Details: Patient is a 54-year-old female who returns to the office today in follow-up. She is 2 years 10 months post sleeve gastrectomy performed on 09/06/2021. She was last seen in the office on 10/11/2023 with a weight of 180.6 lb and a BMI of 28.2. Weight today is 187.4 lb with a BMI of 29.4. no mvi. no calcium + D. 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 meal plan: none exercise: PF, 2 x per week, Treadmill, 90 min PFSH Medical History BMI 35.0-35.9,adult Grieving Encounter for routine gynecological examination History of COVID-19 Eczema Anemia Abnormal stress test BMI 38.0-38.9,adult Vitamin B12 deficiency Vitamin D deficiency Abnormal EKG Foul smelling urine Flank pain Breast screening Abnormal CBC Encounter for general adult medical examination with abnormal findings Physical exam, annual Daytime somnolence BMI 37.0-37.9, adult Preoperative examination Chronic constipation Back pain Anemia Obesity Surgical History S/P laparoscopic sleeve gastrectomy Tubal ligation status Status post cholecystectomy Status post laparoscopic cholecystectomy Hx of bilateral breast reduction surgery Hx of abdominoplasty Family History Father Heart disease Mother No problems noted. Brother DM (diabetes mellitus) Brother No problems noted. Brother No problems noted. Sister No problems noted. Sister No problems noted. Sister No problems noted. Son No problems noted. Son No problems noted. Daughter No problems noted. Daughter No problems noted. Social History Housing: House Are you a primary attending ambulatory care to a significant other at home: No Do you presently have visiting nurse or other home services: No Alcohol intake: current Alcohol intake frequency: a few times a month Patient Tobacco Use Status: Never used Tobacco e-Cigarette/Vaping Use: Never Used Second Hand Smoke Exposure: No service: No Current occupational status: employed Current occupation: [employer] Current occupational exposures/hazards: No Cognitive needs: No Hearing needs: No Vision needs: No Physical Exam Const General: healthy appearing and no acute distress Resp Effort & Inspection: normal respiratory effort Auscultation: clear to auscultation bilaterally Cardio Rate: regular rate Rhythm: regular rhythm GI Auscultation: normal bowel sounds Extrem General: Yes normal to inspection Quality Reporting (2019) Adult ([facility] ) Smoking risk assessment performed?: Yes Patient Tobacco Use Status: Never used Tobacco Assessment & Plan Assessment & Plan (1) S/P laparoscopic sleeve gastrectomy: Comment: 09/06/2021 Code(s): Z98.84 - Bariatric surgery status Category: Surgical Plan: Patient was given information regarding right BMI lucretia. Encouraged to increase days at the gym, following recommendations to burn 300 calories per day, 7 days week or 2000 calories per week. Additionally, obtain multivitamin and calcium plus D. Check 2 year follow-up labs. Patient was given my cell phone number so she may communicate her weight with me weekly and text with any questions or concerns. Return to clinic 4-6 weeks Orders: Orders Insulin Today Z98.84 - Bariatric surgery status Hemoglobin A1c Today Z98.84 - Bariatric surgery status Complete Blood Count Auto Diff Today Z98.84 - Bariatric surgery status Vitamin B12 and Folate Today Z98.84 - Bariatric surgery status Vitamin B1 Today Z98.84 - Bariatric surgery status Ferritin Today Z98.84 - Bariatric surgery status Vitamin D 25-OH Total Today Z98.84 - Bariatric surgery status Lipid Panel Today Z98.84 - Bariatric surgery status IRON PROFILE Today Z98.84 - Bariatric surgery status Comprehensive Met. Panel Today Z98.84 - Bariatric surgery status Zinc Today Z98.84 - Bariatric surgery status C Reactive Protein Today Z98.84 - Bariatric surgery status Vitamin A Today Z98.84 - Bariatric surgery status TSH reflex Free T4 Today Z98.84 - Bariatric surgery status
[2024-07-09 08:53] VITALS: BP 132/74; PULSE 84; TEMP 36.8; O2SAT 96; BMI 29.3
--- OUTSIDE RECORDS SUMMARY | 2024-07-09 08:54 | XMS_ITS | Clinical Summary ---
[facility] Address [address] [place] [address] Care Team Providers Care Baggageman Name Role Phone Unavailable Primary Care Provider Unavailabl e Social History Tobacco Use Types Packs/Day Years Used Date Smoking Tobacco: Never Assessed Comments Unknown Sex and Gender Information Value Date Recorded Sex Assigned at Not on file Legal Sex Female 2:17 AM EST Gender Identity Not on file Sexual Orientation Not on file Plan of Treatment Health Maintenance Due Date Last Done Comments Breast Cancer Screening 1972 DTaP,Tdap,and Td Vaccines (1 - Tdap) 05/05/1991 Hepatitis B Vaccines (1 of 3 - 19+ 3-dose series) 05/05/1991 Cervical Cancer Screening: P ap Smear 1993 Colorectal Cancer Screening: Colonoscopy 02/05/2022 Depression Screening 02/05/2022 HIV Screening 02/05/2022 Hepatitis C Screening 02/05/2022 Social Influencers of Health Screening 02/05/2022 Pneumococcal Vaccine: 50+ Ye ars (1 of 1 - PCV) 2022 Zoster Vaccines (1 of 2) 2022 COVID-19 Vaccine ( - 2023-2 5 season) 2023 Influenza Vaccine (Season Ended) 2024 HIB Vaccines Aged Out No longer eligi ble based on patient's age to complete this topic HPV Vaccines Aged Out No longer eligi ble based on patient's age to complete this topic Hepatitis A Vaccines Aged Out No long er eligible based on patient's age to complete this topic IPV Vaccines Aged Out No longer eligi ble based on patient's age to complete this topic MMR Vaccines Aged Out No longer eligi ble based on patient's age to complete this topic Meningococcal ACWY Vaccine Aged Out N o longer eligible based on patient's age to complete this topic Meningococcal B Vaccine Aged Out No l onger eligible based on patient's age to complete this topic Pneumococcal Vaccine: Pediat rics (0 to 5 Years) and At-Risk Patients (6 to 64 Years) Aged Out No longer eligible b ased on patient's age to complete this topic RSV Immunization Patients Un buddy 20 months Aged Out No longer eligible b ased on patient's age to complete this topic Varicella Vaccines Aged Out No longer eligible based on patient's age to complete this topic
== END 2024-07-09 09:09 | disposition home or self-care (01) ==
LOC: HO.HBS 08:37
PROVIDERS: PCP Internal Medicine; Visit Provider Physician Assistant Surgical
DX: E66.3 Overweight (principal); Z68.29 Body mass index [BMI] 29.0-29.9, adult; Z90.3 Acquired absence of stomach [part of]; Z98.84 Bariatric surgery status
CPT/HCPCS: 99214

== ENCOUNTER 2025-02-11 11:59 | Outpatient (AMB) | payer OTHER, SELFPAY ==
[2025-02-11 12:01] VITALS: BP 132/70; PULSE 84; BMI 31.3
--- NOTE | 2025-02-11 12:01 | MHC.PC.OV ---
Vital Signs 02/11/25 12:01 Height 5 ft 7 in Weight 200 lb BMI 31.3 BP 132/70 Blood Pressure Location Lt brachial Position Sitting Pulse 84 Pulse Source Palpation Comment unable to get O2 due to nails Intake Visit Reasons: Annual PE Allergies penicillin G Allergy (Unknown, Verified 02/11/25 12:02) Hives Medication List - Last Reconciled 02/11/25 by Jonathon Yao MD hydrocortisone 2.5% (Proctosol HC) 1 appl [place] DAILY PRN hydroquinone 4% appl topical Tobacco use date assessed: 08/22/22 HPI Annual PE HPI Details History of Present Illness The patient is a 54 year old female presenting with a physical examination. Headache: - The patient reports experiencing almost daily headaches, which she attributes to stress from work. - The pain is located in the back of her head and is described as a hot sensation. - She finds that relaxation after work helps alleviate the symptoms. - She has a history of migraines from when she was younger Obesity: - The patient's BMI is elevated at 31.3. - She has been gaining weight since her bariatric surgery and has not been seen for weight management since her provider left the practice. - She has had several canceled appointments with the weight management clinic at [facility]. - Lab orders were placed in July by her former weight loss doctor, but she has not completed them yet. Health Maintenance: - The patient has not been seen by her primary care physician since 2022. - Her last mammogram was in 2021 and she is due for another. - Her last CBC and metabolic profile were in 2022. - Referrals for a colonoscopy and to an OBGYN were placed in 2022, but she has not followed up with either. - She has received her flu vaccine. 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 - Weight Management: She has gained weight since bariatric surgery and has been trying to follow up with a weight management program. Health Maintenance - The patient's BMI is elevated at 31.3, and she was counseled on the need to lose weight. - She is due for a mammogram, with the last one completed in 2021. - She agreed to undergo colon cancer screening with a Cologuard test. - A referral to an OBGYN will be placed. - A referral for bariatric surgery follow-up with Dr. Veras will be placed. as per patients request - She was advised to get her eyes checked, as eye strain from computer use could be contributing to her headaches. - She has already received her flu vaccine for the season. - The last laboratory tests, including a CBC and metabolic profile, were done in 2022. Patient Instructions - Please complete the fasting lab work that was ordered for you. The lab opens at 6:30 AM. - We have placed an order for your mammogram. - We have placed a referral for you to see an OBGYN. - See eye doctor to have your eyes checked for your headaches. - A prescription for amitriptyline 25 mg has been sent to your pharmacy to help prevent your headaches. Take one tablet every night. If you feel it's too much, you can cut the tablet in half and take only half a tablet each night. - A Cologuard kit for colon cancer screening will be mailed to you. Please collect a stool sample and send it back as instructed. - Follow up in about three weeks to discuss how the new headache medicine is working. You can schedule a telemedicine visit if it's easier for you. - Schedule your next physical exam for next year. Review of Systems - General: No fever no chills - Neurological: no dizziness - Ear nose throat: No sore throat no hearing difficulty no ear pain - Cardiovascular: No syncope, no chest pain, no palpitations - Gastrointestinal: No nausea vomiting or diarrhea - Endocrine: No polyuria polydipsia no heat intolerance - Genitourinary: No dysuria - Skin: No new complaints Physical Exam General: Cooperative, healthy appearing, comfortable, no acute distress Orientation: Patient oriented x3 Head: Normal to inspection Ears: Within normal limit visually Nose: Normal external nose present Face and sinus: Normal facial exam Eyes: Appearance normal, extraocular movement intact pupils reactive Neck: Normal visual inspection and supple Respiratory: Normal respiratory effort and able to speak in complete sentences. Clear to auscultation, no stridor Cardiovascular: S1 and S2 RRR Breast exam benign GI: Normal to inspection. Soft to palpation and nontender Skin: Turgor normal, no acute findings Neuro: Patient oriented x3, motor sensory intact, balance intact, tandem pass Extremities: Normal to inspection . [facility] Medical History BMI 35.0-35.9,adult Grieving Encounter for routine gynecological examination History of COVID-19 Eczema Anemia Abnormal stress test BMI 38.0-38.9,adult Vitamin B12 deficiency Vitamin D deficiency Abnormal EKG Foul smelling urine Flank pain Breast screening Abnormal CBC Encounter for general adult medical examination with abnormal findings Physical exam, annual Daytime somnolence BMI 37.0-37.9, adult Preoperative examination Chronic constipation Back pain Anemia Obesity Surgical History S/P laparoscopic sleeve gastrectomy Tubal ligation status Status post cholecystectomy Status post laparoscopic cholecystectomy Hx of bilateral breast reduction surgery Hx of abdominoplasty Family History Father Heart disease Mother No problems noted. Brother DM (diabetes mellitus) Brother No problems noted. Brother No problems noted. Sister No problems noted. Sister No problems noted. Sister No problems noted. Son No problems noted. Son No problems noted. Daughter No problems noted. Daughter No problems noted. 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 1. Little interest or pleasure in doing things: not at all 2. Feeling down, depressed, or hopeless: not at all 3. Trouble falling or staying asleep, or sleeping too much: not at all 4. Feeling tired or having little energy: not at all 5. Poor appetite or overeating: nearly every day 6. Feeling bad about yourself - or that you are a failure or have let yourself or your family down: not at all 7. Trouble concentrating on things, such as reading the newspaper or watching television: not at all 8. Moving or speaking so slowly that other people could have noticed. Or the opposite - being so fidgety or restless that you have been moving around a lot more than usual: not at all 9. Thoughts that you would be better off or of hurting yourself in some way: not at all Total score: 3 Depression Screening Interpretation: Negative Depression Screening Done: Yes 90162 - PHQ-9 Billing: Yes Source: Developed by Drs. Deandre Roach, Gretel Swift, Jasper Cook and colleagues, with an educational radha from [employer]. Thrive Questionnaire Date Thrive assessed: 02/10/25 I am a: Patient What is your living situation today?: I have a steady place to live Within the past 12 months, did the food you bought not last and you didn't have the money to get more?: Never true Within the past 12 months, did you worry whether your food would run out before you got money to buy more?: Never true Do you have trouble paying for medicines?: No Do you have trouble getting transportation to medical appointments?: No Do you have trouble paying your heating and electricity bill?: Yes Do you have trouble taking care of your child, family member or friend?: No Do you have trouble with day-to-day activities such as bathing, preparing meals, shopping, managing finances, etc.?: No Are you currently unemployed and looking for a job?: No Are you interested in more education?: Yes Please select the resources that you would like help with: Utilities Currently or been in a relationship where the following occur: No concerns reported THRIVE Score: 1 AUDIT C Alcohol Use Questionnaire (AUDIT-C) 1. How often do you have a drink containing alcohol?: 2-3 times a week 2. How many drinks containing alcohol do you have on a typical day when you are drinking?: 3 or 4 3. How often do you have six or more drinks on one occasion?: Never Total Score: 4 PAO-7 AMB Questionnaire PAO-7 Date PAO - 7 assessed: 08/19/21 Feeling nervous, anxious, or on edge: 0 = Not at all Not being able to stop or control worryin = Not at all Worrying too much about different things: 1 = Several days Trouble relaxin = Not at all Being so restless that it is hard to sit still: 0 = Not at all Becoming easily annoyed or irritable: 1 = Several days Feeling afraid as if something awful might happen: 0 = Not at all Total PAO-7 score (0-4 normal; 5-9 mild; 10-14 moderate; 15-21 severe): 2 Source: Developed by Drs. Deandre Roach, Gretel Swift, Jasper Cook and colleagues, with an educational radha from [employer]. PAO-7 Assessment Billing PAO-7 Assessment Tool: PAO-7 Assessment 59026 Physical exam (Primary Care) Vital Signs: Last Vital Signs Pulse 84 02/11/25 12:01 BP 132/70 02/11/25 12:01 BMI result Body Mass Index 31.3 Tobacco/Smoking Status: Tobacco use Status Tobacco use date assessed 08/22/22 02/11/25 12:08 Patient Tobacco Use Status Never used Tobacco 02/11/25 12:08 e-Cigarette/Vaping Use Never Used 02/11/25 12:08 PHQ-9: PHQ-9 Score PHQ-9: Total score 3 02/11/25 12:08 Depression Screening Interpretation: Negative Thrive Assessment: Date of Thrive Assessment Date Thrive assessed 02/10/25 02/11/25 12:08 Currently or been in a relationship where the following occur: No concerns reported Coding Level of Care Code Est Pt Level 4 (87849) Est Pt Prev Care 40-64y(13393) Diagnoses Encounter for general adult medical examination with abnormal findings Z00.01 Stress headache F45.41 Class 1 obesity due to excess calories without serious comorbidity with body mass index (BMI) of 31.0 to 31.9 in adult E66.811; E66.09; Z68.31 Obesity type: due to excess calories Obesity classification: adult class 1 (BMI 30 - 34.9) Serious obesity comorbidity presence: without serious comorbidity Body mass index: BMI 31.0-31.9 Colon cancer screening Z12.11 History of bariatric surgery Z98.84 Additional Codes PHQ-9 - 50912 - PHQ-9 Billing: Yes ([id number]) PAO-7 Assessment Billing - PAO-7 Assessment Tool: PAO-7 Assessment 77316 ([id number]) Assessment & Plan Assessment & Plan (1) Encounter for general adult medical examination with abnormal findings: Code(s): Z00.01 - Encounter for general adult medical examination with abnormal findings Category: Medical (2) Stress headache: Code(s): F45.41 - Pain disorder exclusively related to psychological factors Category: Medical (3) Obesity: Code(s): E66.9 - Obesity, unspecified Category: Medical Qualifiers: Obesity type: due to excess calories Obesity classification: adult class 1 (BMI 30 - 34.9) Serious obesity comorbidity presence: without serious comorbidity Body mass index: BMI 31.0-31.9 Qualified Code(s): E66.811 - Obesity, class 1; E66.09 - Other obesity due to excess calories; Z68.31 - Body mass index [BMI] 31.0-31.9, adult (4) Colon cancer screening: Code(s): Z12.11 - Encounter for screening for malignant neoplasm of colon Category: Medical (5) History of bariatric surgery: Code(s): Z98.84 - Bariatric surgery status Category: Surgical Plan Patient Instructions - Please complete the fasting lab work that was ordered for you. The lab opens at 6:30 AM. - We have placed an order for your mammogram. - We have placed a referral for you to see an OBGYN. - See eye doctor to have your eyes checked for your headaches. - A prescription for amitriptyline 25 mg has been sent to your pharmacy to help prevent your headaches. Take one tablet every night. If you feel it's too much, you can cut the tablet in half and take only half a tablet each night. - A Cologuard kit for colon cancer screening will be mailed to you. Please collect a stool sample and send it back as instructed. - Follow up in about three weeks to discuss how the new headache medicine is working. You can schedule a telemedicine visit if it's easier for you. - Schedule your next physical exam for next year. Orders: Orders MM tomosynthesis screening BI Today Z12.31 - Encounter for screening mammogram for malignant neoplasm of breast Complete Blood Count Auto Diff Today E66.09 - Other obesity due to excess calories, E66.811 - Obesity, class 1, F45.41 - Pain disorder exclusively related to psychological factors, Z00.01 - Encounter for general adult medical examination with abnormal findings, Z68.31 - Body mass index [BMI] 31.0-31.9, adult, Z98.84 - Bariatric surgery status Comprehensive [place]. Panel Fast Today E66.09 - Other obesity due to excess calories, E66.811 - Obesity, class 1, F45.41 - Pain disorder exclusively related to psychological factors, Z00.01 - Encounter for general adult medical examination with abnormal findings, Z68.31 - Body mass index [BMI] 31.0-31.9, adult, Z98.84 - Bariatric surgery status Vitamin B12 Today E66.09 - Other obesity due to excess calories, E66.811 - Obesity, class 1, F45.41 - Pain disorder exclusively related to psychological factors, Z00.01 - Encounter for general adult medical examination with abnormal findings, Z68.31 - Body mass index [BMI] 31.0-31.9, adult, Z98.84 - Bariatric surgery status Vitamin A Today E66.09 - Other obesity due to excess calories, E66.811 - Obesity, class 1, F45.41 - Pain disorder exclusively related to psychological factors, Z00.01 - Encounter for general adult medical examination with abnormal findings, Z68.31 - Body mass index [BMI] 31.0-31.9, adult, Z98.84 - Bariatric surgery status TSH reflex Free T4 Today E66.09 - Other obesity due to excess calories, E66.811 - Obesity, class 1, F45.41 - Pain disorder exclusively related to psychological factors, Z00.01 - Encounter for general adult medical examination with abnormal findings, Z68.31 - Body mass index [BMI] 31.0-31.9, adult, Z98.84 - Bariatric surgery status Ferritin Today E66.09 - Other obesity due to excess calories, E66.811 - Obesity, class 1, F45.41 - Pain disorder exclusively related to psychological factors, Z00.01 - Encounter for general adult medical examination with abnormal findings, Z68.31 - Body mass index [BMI] 31.0-31.9, adult, Z98.84 - Bariatric surgery status Zinc Today E66.09 - Other obesity due to excess calories, E66.811 - Obesity, class 1, F45.41 - Pain disorder exclusively related to psychological factors, Z00.01 - Encounter for general adult medical examination with abnormal findings, Z68.31 - Body mass index [BMI] 31.0-31.9, adult, Z98.84 - Bariatric surgery status Lipid Panel Today E66.09 - Other obesity due to excess calories, E66.811 - Obesity, class 1, F45.41 - Pain disorder exclusively related to psychological factors, Z00.01 - Encounter for general adult medical examination with abnormal findings, Z68.31 - Body mass index [BMI] 31.0-31.9, adult, Z98.84 - Bariatric surgery status Vitamin D 25-OH (D2 and D3) Today E66.09 - Other obesity due to excess calories, E66.811 - Obesity, class 1, F45.41 - Pain disorder exclusively related to psychological factors, Z00.01 - Encounter for general adult medical examination with abnormal findings, Z68.31 - Body mass index [BMI] 31.0-31.9, adult, Z98.84 - Bariatric surgery status Referrals Bariatric Surgery Referral E66.9 - Obesity, unspecified [place] Referral Z01.419 - Encounter for gynecological examination (general) (routine) without abnormal findings Cologuard Test Z12.11 - Encounter for screening for malignant neoplasm of colon Medications: New amitriptyline 25 mg PO BEDTIME 30 tabs 0RF 30 days
== END 2025-02-11 12:35 | disposition home or self-care (01) ==
LOC: HO.HMCC 12:00
PROVIDERS: PCP Internal Medicine; Visit Provider Internal Medicine
DX: Z00.01 Encounter for general adult medical examination with abnormal findings (principal); F45.41 Pain disorder exclusively related to psychological factors; E66.811 Obesity, class 1; Z68.31 Body mass index [BMI] 31.0-31.9, adult; Z12.11 Encounter for screening for malignant neoplasm of colon; Z98.84 Bariatric surgery status

== ENCOUNTER → 2025-02-11 11:59 | Outpatient (BNVA) | payer OTHER, SELFPAY | PROVIDERS: PCP Internal Medicine; Visit Provider Internal Medicine | DX: Z13.31 Encounter for screening for depression (principal); Z13.39 Encounter for screening examination for other mental health and behavioral disorders | CPT/HCPCS: 96127 ==

== ENCOUNTER 2025-02-14 08:59 | Outpatient (REF) | payer OTHER, SELFPAY ==
--- OUTSIDE RECORDS SUMMARY | 2025-02-14 09:02 | XMS_ITS | Clinical Summary ---
[facility] Address [address] [place] [address] Care Team Providers Care Patient Care Specialist Name Role Phone Unavailable Primary Care Provider [...] Cervical Cancer Screening: P ap Smear 1993 Pneumococcal Vaccine: 50+ Ye ars (1 of 1 - PCV) 2022 Zoster Vaccines (1 of 2) 2022 Depression Screening 03/05/2024 COVID-19 Vaccine ( - 2024-2 6 season) 2024 Influenza Vaccine (#1) 2024 RSV Immunization Adult Patie nts (1 - 1-dose 75+ series) 05/05/2047 HIB Vaccines Aged Out No longer eligi [...]
[2025-02-14 11:37] LABS: MANUAL DIFF FLAG NO
[2025-02-14 11:45] LABS: Hematocrit 43.9 % (37.0-47.0); Hemoglobin 14.4 g/dl (12.0-16.0); Imm Gran Abs Auto 0.03 X10*3/uL (0.00-0.03); Imm Gran Pct Auto 0.5 % (0.0-0.4); Lymphocytes Absolute Auto 2.7 X10*3/uL (1.2-4.9); Mean Corpuscular HGB Conc 32.8 g/dl (31.0-35.0); Mean Corpuscular Hemoglobin 29.0 pg (27.0-33.0); Mean Corpuscular Volume 88.5 fL (80.0-98.0); NRBC Abs Auto 0.000 X10*3/uL (0.0-0.012); NRBC Pct Auto 0.0 /100WBC (0.0-0.2); Platelet Count 336 X10*3/uL (160-400); Red Blood Count 4.96 X10*6/uL (4.20-5.50); White Blood Count 5.9 X10*3/uL (4.8-10.8)
[2025-02-14 12:07] LABS: Alanine Aminotransferase 16 U/L (0-31); Albumin Level 4.1 g/dL (3.5-5.0); Alkaline Phosphatase 69 U/L (39-117); Anion Gap 10 (12-20); Aspartate Amino Transferase 30 U/L (5-31); Blood Urea Nitrogen 12 mg/dL (9-16); Calcium 9.1 mg/dL (8.4-10.2); Carbon Dioxide 23 mmol/L (22-29); Chloride 114 mmol/L (96-108); Cholesterol 192 mg/dL (<200); Estimated Glomerular Filt Rate > 60; HDL Cholesterol 57 mg/dL (>40); Potassium 3.7 mmol/L (3.3-5.1); Sodium 143 mmol/L (135-145); Total Protein 6.9 g/dL (6.5-8.0); Triglycerides 66 mg/dL (<150)
[2025-02-14 12:24] LABS: Vitamin B12 339 pg/mL (200-900)
[2025-02-14 12:26] LABS: Ferritin 36 ng/mL (10-250)
[2025-02-14 12:57] LABS: Free T4 (Free Thyroxine) 0.85 ng/dL (0.71-1.85)
== END 2025-02-14 09:00 | disposition home or self-care (01) ==
LOC: HO.HMGCLDS 08:59
PROVIDERS: PCP Internal Medicine; Visit Provider Internal Medicine
DX: Z00.01 Encounter for general adult medical examination with abnormal findings (principal); E66.811 Obesity, class 1; E66.09 Other obesity due to excess calories; Z68.31 Body mass index [BMI] 31.0-31.9, adult; F45.41 Pain disorder exclusively related to psychological factors; Z98.84 Bariatric surgery status; Z13.29 Encounter for screening for other suspected endocrine disorder
CPT/HCPCS: 36415; 80053; 80061; 82306; 82607; 82728; 84439; 84443; 84590; 85025

== ENCOUNTER 2025-02-21 11:13 | Outpatient (REF) | payer OTHER, SELFPAY ==
--- OUTSIDE RECORDS SUMMARY | 2025-02-21 11:17 | XMS_ITS | Clinical Summary ---
[facility] Address [address] [place] [address] Care Team Providers Care Zinc Plater Name Role Phone Unavailable Primary Care Provider [...]
== END 2025-02-21 11:14 | disposition home or self-care (01) ==
LOC: HO.HMGCLDS 11:13
PROVIDERS: PCP Internal Medicine; Visit Provider Internal Medicine
DX: Z00.00 Encounter for general adult medical examination without abnormal findings (principal); E66.811 Obesity, class 1; Z68.31 Body mass index [BMI] 31.0-31.9, adult; F45.41 Pain disorder exclusively related to psychological factors; Z98.84 Bariatric surgery status; R79.89 Other specified abnormal findings of blood chemistry; Z13.29 Encounter for screening for other suspected endocrine disorder
CPT/HCPCS: 36415; 84443; 84630